=== PATIENT | female | born 1995 | race Hispanic/Latino ===

== ENCOUNTER 2018-05-27 08:28 | Emergency (ER) | payer MEDICARE ==
[2018-05-27 09:46] LABS: APPEARANCE,URINE Clear (CLEAR); BILIRUBIN,URINE Negative (NEGATIVE); COLOR,URINE Yellow (YELLOW); GLUCOSE, URINE (UA) Negative (NEGATIVE); KETONES,URINE Negative (NEGATIVE); LEUKOCYTE ESTERASE ,URINE Small (NEGATIVE); NITRATE,URINE Negative (NEGATIVE); OCCULT BLOOD,URINE Negative (NEGATIVE); PH,URINE 5.5 (5.0-8.0); PROTEIN,URINE Negative (NEGATIVE); UROBILINOGEN,URINE 0.2 mg/dL (0.2-1.0)
[2018-05-27 09:57] LABS: RAPID GROUP A STREP NEGATIVE (NEGATIVE)
[2018-05-27 10:01] LABS: RBC,URINE None Seen /HPF (0-1)
[2018-05-27 10:02] LABS: BACTERIA,URINE Rare /HPF (None Seen); MUCUS,URINE Moderate LPF (None Seen); SQUAMOUS EPITHELIAL CELL,UR Moderate /HPF (0-2)
[2018-05-27 10:49] LABS: BASOPHILS % (AUTO) 0.3 % (0.0-5.0); EOSINOPHILS % (AUTO) 1.6 % (0.0-8.0); LYMPHOCYTES % (AUTO) 19.9 % (21.0-51.0); MEAN CORPUSCULAR HEMOGLOBIN 28.4 pg (27.0-33.0); MEAN CORPUSCULAR HGB CONC 33.1 g/dL (32.0-36.0); MEAN CORPUSCULAR VOLUME 85.8 fL (79-99); MONOCYTES % (AUTO) 3.6 % (3.0-13.0); NEUTROPHILS % (AUTO) 74.6 % (40.0-77.0); PLATELET COUNT (AUTO) 228 K/uL (130-400); RED CELL DISTRIBUTION WIDTH 13.4 % (11.0-15.5); WHITE BLOOD COUNT (AUTO) 3.3 K/uL (4.8-10.8)
[2018-05-27 10:58] LABS: CREATININE 0.7 mg/dL (0.5-1.5); POTASSIUM 3.7 mmol/L (3.5-5.1)
[2018-05-27] MEDS ORDERED: LIDOCAINE HCL MPF 1% 5ML VIAL ONE (11:00)
[2018-05-27] MEDS ORDERED: CEFTRIAXONE SODIUM 1 GM ONE (11:00)
[2018-05-27 11:03] LABS: ALBUMIN 2.7 g/dL (3.5-5.0); BILIRUBIN,TOTAL 0.1 mg/dL (0.2-1.0); TOTAL PROTEIN, SERUM 7.1 g/dL (6.0-8.3)
== END 2018-05-27 11:33 | disposition home or self-care (01) ==
LOC: EDH 08:28
DX: N39.0 Urinary tract infection, site not specified (principal); R50.81 Fever presenting with conditions classified elsewhere; M79.10 Myalgia, unspecified site; Z88.0 Allergy status to penicillin; Z98.890 Other specified postprocedural states
CPT/HCPCS: 36415; 80053; 81001; 81025; 85025; 86757; 87804 ×2; 87880; 96372; 99284; J0696; J3490

== ENCOUNTER 2018-05-29 07:34 | Observation (INO) | payer MEDICARE ==
[~2018-05-29] VITALS: Ht 154.9 cm; Wt 55.8 kg
[2018-05-29] MEDS ORDERED: KETOROLAC TROMETHAMINE 30MG/ML ONE (08:07)
[2018-05-29 08:22] LABS: BASOPHILS % (AUTO) 0.4 % (0.0-5.0); EOSINOPHILS % (AUTO) 1.7 % (0.0-8.0); HEMATOCRIT 30.7 % (36-48); LYMPHOCYTES % (AUTO) 21.9 % (21.0-51.0); MEAN CORPUSCULAR HEMOGLOBIN 28.7 pg (27.0-33.0); MEAN CORPUSCULAR HGB CONC 33.3 g/dL (32.0-36.0); MEAN CORPUSCULAR VOLUME 86.1 fL (79-99); NUCLEATED RED BLOOD CELLS 0.1 % (0.0-0.19); PLATELET COUNT (AUTO) 227 K/uL (130-400); RED BLOOD CELL COUNT(AUTO) 3.57 MIL/uL (4.00-5.50); RED CELL DISTRIBUTION WIDTH 13.6 % (11.0-15.5); WHITE BLOOD COUNT (AUTO) 3.4 K/uL (4.8-10.8)
[2018-05-29 08:28] LABS: CREATININE 0.6 mg/dL (0.5-1.5); POTASSIUM 3.4 mmol/L (3.5-5.1)
[2018-05-29 08:31] LABS: APPEARANCE,URINE CLEAR (CLEAR); BILIRUBIN,URINE NEGATIVE (NEGATIVE); COLOR,URINE YELLOW (YELLOW); GLUCOSE, URINE (UA) NEGATIVE (NEGATIVE); KETONES,URINE NEGATIVE (NEGATIVE); LEUKOCYTE ESTERASE ,URINE NEGATIVE (NEGATIVE); NITRATE,URINE NEGATIVE (NEGATIVE); OCCULT BLOOD,URINE TRACE-INTACT (NEGATIVE); PROTEIN,URINE NEGATIVE (NEGATIVE); UROBILINOGEN,URINE 0.2 mg/dL (0.2-1.0)
[2018-05-29 08:32] LABS: ALBUMIN 2.7 g/dL (3.5-5.0); BILIRUBIN,TOTAL 0.2 mg/dL (0.2-1.0); CRP QUANTITATIVE 12.3 mg/L (0.00-9.0); TOTAL PROTEIN, SERUM 7.1 g/dL (6.0-8.3)
[2018-05-29 08:45] LABS: RBC,URINE None Seen /HPF (0-1); WBC,URINE 0-1 /HPF (0-1)
[2018-05-29 08:48] LABS: BACTERIA,URINE Rare /HPF (None Seen); SQUAMOUS EPITHELIAL CELL,UR Few /HPF (0-2)
[2018-05-29] MEDS ORDERED: ONDANSETRON HCL 4 MG/2 ML VIAL ONE (09:02)
[2018-05-29] MEDS ORDERED: MORPHINE SULFATE 4 MG/1ML SYG ONE (09:03)
[2018-05-29] MEDS ORDERED: SODIUM CHLORIDE 0.9% 1000ML 1,000 ML IV ONE (10:52)
[2018-05-29] MEDS ORDERED: ENOXAPARIN SODIUM 40 MG/0.4 ML SYRINGE SQ ONE (10:52)
[2018-05-29] MEDS ORDERED: MORPHINE SULFATE 2 MG/ML 1ML SYG ONE (12:28)
[2018-05-29 13:05] VITALS: BP 105/62
[2018-05-29] MEDS ORDERED: LACTULOSE 20 GM/30 ML UDCUP PO PRN (14:30)
[2018-05-29] MEDS ORDERED: ACETAMINOPHEN 325 MG TAB PO PRN ×2 (14:30)
[2018-05-29] MEDS ORDERED: ONDANSETRON HCL 4 MG/2 ML VIAL IVP PRN (14:30)
[2018-05-29] MEDS ORDERED: MAG HYDROX/AL HYDROX/SIMETH ES 30 ML SUSP UDCUP PO PRN (14:30)
[2018-05-29] MEDS ORDERED: NITROGLYCERIN 0.4 MG SL TAB SL PRN (14:30)
[2018-05-29] MEDS ORDERED: GUAIFENESIN-DM 200/20 MG 10 ML PO PRN (14:30)
[2018-05-29] MEDS ORDERED: LIDOCAINE HCL-MPF 1% 2ML VIAL IJ PRN (14:30)
[2018-05-29] MEDS ORDERED: POTASSIUM CHLORIDE 10% ELIXIR 20 MEQ/15 ML UDCUP PO PRN (14:30)
[2018-05-29] MEDS ORDERED: CLONIDINE HCL 0.1 MG TABLET PO PRN (14:30)
[2018-05-29] MEDS ORDERED: DIPHENHYDRAMINE HCL 25 MG CAPSULE PO PRN (14:30)
[2018-05-29] MEDS ORDERED: DiphenhydrAMINE HCL 50 MG/ML VIAL IVP PRN (14:30)
[2018-05-29] MEDS ORDERED: ZOLPIDEM TARTRATE 5 MG TAB PO PRN (14:30)
[2018-05-29] MEDS ORDERED: POTASSIUM CHLORIDE 20MEQ/100ML 100 ML IV PRN (14:30)
[2018-05-29] MEDS ORDERED: LEVE250T2 PO (15:38)
[2018-05-29] MEDS: SODIUM CHLORIDE 0.9% 1000ML 1,000 ML IV SCH (15:58)
[2018-05-29 16:00] VITALS: BP 95/48
[2018-05-29] MEDS: HYDROCODONE/ACETAMINOPHEN 5/325 MG TAB PO PRN ×2 (16:06→20:23)
[2018-05-29] MEDS: INSULIN R PO SS1 SQ SCH ×2 (16:28→21:00)
[2018-05-29] MEDS: POTASSIUM CHLORIDE 20 MEQ ERTAB PO PRN (17:51)
[2018-05-29 19:00] VITALS: BP 95/55
[2018-05-29] MEDS ORDERED: DOXY100C40 PO (19:04)
[2018-05-29] MEDS: LEVETIRACETAM 500 MG TABLET PO SCH (20:23)
[2018-05-29] MEDS: MORPHINE SULFATE 2 MG/ML 1ML SYG IVP PRN (21:56)
[2018-05-30] VITALS: BP 105/51
[2018-05-30] MEDS: MORPHINE SULFATE 2 MG/ML 1ML SYG IVP PRN ×2 (03:24→23:17)
[2018-05-30] MEDS: SODIUM CHLORIDE 0.9% 1000ML 1,000 ML IV SCH (03:29)
[2018-05-30 04:00] VITALS: BP 109/57
[2018-05-30 04:47] LABS: HEMATOCRIT 29.1 % (36-48); MEAN CORPUSCULAR HEMOGLOBIN 28.2 pg (27.0-33.0); MEAN CORPUSCULAR HGB CONC 33.1 g/dL (32.0-36.0); MEAN CORPUSCULAR VOLUME 85.1 fL (79-99); NUCLEATED RED BLOOD CELLS 0.1 % (0.0-0.19); PLATELET COUNT (AUTO) 199 K/uL (130-400); RED BLOOD CELL COUNT(AUTO) 3.42 MIL/uL (4.00-5.50); RED CELL DISTRIBUTION WIDTH 13.4 % (11.0-15.5); WHITE BLOOD COUNT (AUTO) 3.1 K/uL (4.8-10.8)
[2018-05-30 05:02] LABS: CREATININE 0.6 mg/dL (0.5-1.5); POTASSIUM 3.3 mmol/L (3.5-5.1)
[2018-05-30] MEDS: INSULIN R PO SS1 SQ SCH ×4 (06:11→21:00)
[2018-05-30] MEDS: HYDROCODONE/ACETAMINOPHEN 5/325 MG TAB PO PRN ×3 (06:31→18:46)
[2018-05-30 07:00] VITALS: BP 102/59
[2018-05-30] MEDS: ENOXAPARIN SODIUM 40 MG/0.4 ML SYRINGE SQ SCH (08:47)
[2018-05-30] MEDS: LEVETIRACETAM 500 MG TABLET PO SCH ×2 (08:47→21:20)
[2018-05-30 11:00] VITALS: BP 98/61
[2018-05-30 15:59] VITALS: BP 105/55
[2018-05-30] MEDS: POTASSIUM CHLORIDE 20 MEQ ERTAB PO PRN ×2 (18:52→21:21)
[2018-05-30 19:00] VITALS: BP 107/55
[2018-05-30] MEDS: METHYLPREDNISOLONE SOD SUCC 125MG/2ML VIAL IVP SCH (21:20)
[2018-05-31] VITALS: BP 90/59
[2018-05-31] MEDS: METHYLPREDNISOLONE SOD SUCC 125MG/2ML VIAL IVP SCH ×3 (03:00→19:51)
[2018-05-31 04:00] VITALS: BP 103/51
[2018-05-31 05:01] LABS: MEAN CORPUSCULAR VOLUME 85.2 fL (79-99); PLATELET COUNT (AUTO) 241 K/uL (130-400); RED BLOOD CELL COUNT(AUTO) 3.64 MIL/uL (4.00-5.50); RED CELL DISTRIBUTION WIDTH 13.3 % (11.0-15.5); WHITE BLOOD COUNT (AUTO) 2.5 K/uL (4.8-10.8)
[2018-05-31 05:11] LABS: CREATININE 0.6 mg/dL (0.5-1.5); CRP QUANTITATIVE 22.3 mg/L (0.00-9.0); MAGNESIUM 1.8 mg/dL (1.80-2.40); PHOSPHORUS 3.4 mg/dL (2.5-4.9); POTASSIUM 4.2 mmol/L (3.5-5.1)
[2018-05-31] MEDS: INSULIN R PO SS1 SQ SCH ×3 (06:34→16:30)
[2018-05-31 07:58] VITALS: BP 101/54
[2018-05-31] MEDS: LEVETIRACETAM 500 MG TABLET PO SCH (09:45)
[2018-05-31] MEDS: HYDROCODONE/ACETAMINOPHEN 5/325 MG TAB PO PRN (09:46)
[2018-05-31] MEDS: ENOXAPARIN SODIUM 40 MG/0.4 ML SYRINGE SQ SCH (09:47)
[2018-05-31 11:36] VITALS: BP 97/56
[2018-05-31] MEDS: MORPHINE SULFATE 2 MG/ML 1ML SYG IVP PRN (16:31)
[2018-05-31 16:38] VITALS: BP 108/51
[2018-05-31] MEDS ORDERED: POTASSIUM CHLORIDE 20 MEQ ERTAB PO SCH (17:00)
== END 2018-05-31 20:29 | disposition home or self-care (01) ==
LOC: EDH 07:34 → EDHIP 09:50 → 3BH 13:07
PROVIDERS: ADMIT Internal Medicine Critical Care Medicine; ATTEND Internal Medicine Critical Care Medicine
DX: M06.4 Inflammatory polyarthropathy (principal); M19.90 Unspecified osteoarthritis, unspecified site; G40.909 Epilepsy, unspecified, not intractable, without status epilepticus
CPT/HCPCS: 36415 ×3; 72125; 80048 ×2; 80053; 81001; 81025; 82948 ×10; 83735; 84100; 85025; 85027 ×2; 86038; 86140 ×2; 86160 ×2; 86162; 86215; 86235 ×7; 86431; 96372 ×2; 96374; 96375; 96376 ×2; 99285; G0378 ×59; J1650 ×3; J1885; J2270; J2405; J2930 ×4; J7030 ×2

== ENCOUNTER 2018-07-14 10:01 | Emergency (ER) | payer MEDICARE ==
[~2018-07-14 10:01] MED LIST: DOXY100C40 PO; LEVE250T2 PO
[2018-07-14] MEDS ORDERED: DEXAMETHASONE SOD PHOSPHATE 10MG/ML 1ML VIAL ONE (10:45)
[2018-07-14 10:47] LABS: APPEARANCE,URINE Clear (CLEAR); BILIRUBIN,URINE Negative (NEGATIVE); COLOR,URINE Yellow (YELLOW); GLUCOSE, URINE (UA) Negative (NEGATIVE); KETONES,URINE Negative (NEGATIVE); LEUKOCYTE ESTERASE ,URINE Small (NEGATIVE); NITRATE,URINE Negative (NEGATIVE); OCCULT BLOOD,URINE Negative (NEGATIVE); PH,URINE 5.5 (5.0-8.0); PROTEIN,URINE Negative (NEGATIVE)
[2018-07-14 10:53] LABS: HCG,QUAL RESULT NEGATIVE (NEGATIVE)
[2018-07-14 10:55] LABS: BACTERIA,URINE Few /HPF (None Seen); MUCUS,URINE Few LPF (None Seen); RBC,URINE None Seen /HPF (0-1); SQUAMOUS EPITHELIAL CELL,UR Few /HPF (0-2)
== END 2018-07-14 10:59 | disposition home or self-care (01) ==
LOC: EDH 10:01
DX: M13.0 Polyarthritis, unspecified (principal); M25.50 Pain in unspecified joint; M06.9 Rheumatoid arthritis, unspecified; Z98.890 Other specified postprocedural states; Z88.0 Allergy status to penicillin
CPT/HCPCS: 81001; 81025; 96372; 99283; J1100

== ENCOUNTER 2018-11-20 09:45 | Observation (INO) | payer MEDICARE ==
[~2018-11-20] VITALS: Ht 154.9 cm; Wt 50.8 kg
[2018-11-20] MEDS ORDERED: MORPHINE SULFATE 2 MG/ML 1ML SYG ONE ×2 (10:28→15:15)
[2018-11-20] MEDS ORDERED: ONDANSETRON HCL 4 MG/2 ML VIAL ONE ×2 (10:28→15:19)
[2018-11-20 10:48] LABS: BASOPHILS % (AUTO) 0.4 % (0.0-5.0); LYMPHOCYTES % (AUTO) 3.5 % (21.0-51.0); MEAN CORPUSCULAR HEMOGLOBIN 26.7 pg (27.0-33.0); MEAN CORPUSCULAR HGB CONC 32.8 g/dL (32.0-36.0); MEAN CORPUSCULAR VOLUME 81.2 fL (79-99); MONOCYTES % (AUTO) 5.2 % (3.0-13.0); NEUTROPHILS % (AUTO) 90.9 % (40.0-77.0); PLATELET COUNT (AUTO) 223 K/uL (130-400); RED BLOOD CELL COUNT(AUTO) 3.81 MIL/uL (4.00-5.50); RED CELL DISTRIBUTION WIDTH 14.6 % (11.0-15.5); WHITE BLOOD COUNT (AUTO) 14.2 K/uL (4.8-10.8)
[2018-11-20 11:03] LABS: ALBUMIN 2.8 g/dL (3.5-5.0); BILIRUBIN,TOTAL 0.9 mg/dL (0.2-1.0); TOTAL PROTEIN, SERUM 7.3 g/dL (6.0-8.3)
[2018-11-20 12:16] LABS: APPEARANCE,URINE Clear (CLEAR); BILIRUBIN,URINE Negative (NEGATIVE); COLOR,URINE Yellow (YELLOW); GLUCOSE, URINE (UA) Negative (NEGATIVE); KETONES,URINE Trace mg/dL (NEGATIVE); LEUKOCYTE ESTERASE ,URINE Large (NEGATIVE); NITRATE,URINE Negative (NEGATIVE); OCCULT BLOOD,URINE Small (NEGATIVE); PH,URINE 6.5 (5.0-8.0); PROTEIN,URINE POS 1+ mg/dL (NEGATIVE)
[2018-11-20 12:49] LABS: BACTERIA,URINE Many /HPF (None Seen); SQUAMOUS EPITHELIAL CELL,UR Few /HPF (0-2); WBC,URINE TNTC /HPF (0-1)
[2018-11-20] MEDS ORDERED: LEVOFLOXACIN 500 MG/D5W 100 ML 100 ML ONE (13:21)
[2018-11-20] MEDS ORDERED: POTASSIUM CHLORIDE 20 MEQ ERTAB PO ONE (13:55)
[2018-11-20] MEDS ORDERED: POTASSIUM CHLORIDE 20MEQ/100ML 100 ML IV PRN (15:15)
[2018-11-20] MEDS ORDERED: LIDOCAINE HCL-MPF 1% 2ML VIAL IJ PRN (15:15)
[2018-11-20] MEDS ORDERED: POTASSIUM CHLORIDE 10% ELIXIR 20 MEQ/15 ML UDCUP PO PRN (15:15)
[2018-11-20] MEDS ORDERED: LACTATED RINGERS 1000ML 1,000 ML IV ONE (15:19)
[2018-11-20] MEDS ORDERED: ACETAMINOPHEN 325 MG TAB ONE (20:31)
--- NOTE | 2018-11-20 22:15 | NUR ---
admit note admit to room 401 via w/c from er , patient awake, alert, ox3, no sob,no c/o pain at this time, right ac 20 gauge catheter with ivf infusing well, no family at bedside, teach patient plan of care and expected outcome, patient verbalizes understanding via teach back
[2018-11-20 22:20] VITALS: BP 103/51
[2018-11-20] MEDS ORDERED: FLUO10CA21 PO (22:30)
[2018-11-20] MEDS ORDERED: HYDR200T82 PO (22:30)
[2018-11-20] MEDS ORDERED: LEVE10006 PO ×2 (22:30)
[2018-11-20] MEDS ORDERED: FOLI20CA PO (22:30)
[2018-11-20] MEDS: LACTATED RINGERS 1000ML 1,000 ML IV SCH ×2 (23:15→23:40)
[2018-11-20] MEDS ORDERED: MAGNESIUM 2GM PREMIX 50ML 50 ML IV PRN (23:45)
[2018-11-21] MEDS ORDERED: MORPHINE SULFATE 2 MG/ML 1ML SYG ONE (00:30)
[2018-11-21] MEDS: ONDANSETRON HCL 4 MG/2 ML VIAL IVP PRN ×2 (00:32→17:35)
--- NOTE | 2018-11-21 00:32 | NUR ---
nausea c/o nausea, no vomiting, zofran 4 mg ivp given
--- NOTE | 2018-11-21 01:05 | NUR ---
med effect nausea subsided
[2018-11-21 04:04] VITALS: BP 96/45
[2018-11-21 04:10] LABS: HEMATOCRIT 26.3 % (36-48); MEAN CORPUSCULAR HEMOGLOBIN 27.9 pg (27.0-33.0); MEAN CORPUSCULAR HGB CONC 33.7 g/dL (32.0-36.0); MEAN CORPUSCULAR VOLUME 82.9 fL (79-99); PLATELET COUNT (AUTO) 182 K/uL (130-400); RED BLOOD CELL COUNT(AUTO) 3.17 MIL/uL (4.00-5.50); RED CELL DISTRIBUTION WIDTH 14.3 % (11.0-15.5); WHITE BLOOD COUNT (AUTO) 10.5 K/uL (4.8-10.8)
[2018-11-21 04:28] LABS: ALBUMIN 2.1 g/dL (3.5-5.0); BILIRUBIN,TOTAL 0.5 mg/dL (0.2-1.0); CREATININE 0.9 mg/dL (0.5-1.5); POTASSIUM 3.4 mmol/L (3.5-5.1); TOTAL PROTEIN, SERUM 5.8 g/dL (6.0-8.3)
[2018-11-21] MEDS: POTASSIUM CHLORIDE 20 MEQ ERTAB PO PRN ×2 (06:23→09:44)
[2018-11-21] MEDS: LACTATED RINGERS 1000ML 1,000 ML IV SCH (06:24)
[2018-11-21] MEDS: MORPHINE SULFATE 2 MG/ML 1ML SYG IVP PRN ×3 (06:28→21:45)
--- NOTE | 2018-11-21 09:00 | NUR ---
[place] MET W PT ; AAOX3, YOUNG , MOM OF YOUNG CHILDREN , GRANT, NO DME, STATES BECAME NAUESATED AFTER EATING; HX OF LUPUS, PAIN+ WITH THIS ILLNESS. DCP HOME, MOTHER OT PROVIDE TRANSPORT Addendum: 11/22/18 at 1956 by JOHNNY BABCOCK RN CM Amended: Links added.
[2018-11-21 09:08] VITALS: BP 92/50
[2018-11-21] MEDS: FOLIC ACID 1 MG TABLET PO SCH (09:32)
[2018-11-21] MEDS: LEVETIRACETAM 500 MG TABLET PO SCH (09:32)
[2018-11-21] MEDS: FLUOXETINE HCL 10 MG CAPSULE PO SCH (09:32)
[2018-11-21 11:34] VITALS: BP 92/53
[2018-11-21] MEDS: ACETAMINOPHEN 325 MG TAB PO PRN (11:53)
--- NOTE | 2018-11-21 13:20 | NUR ---
Notified Dr. Brewster during his round with pt of pt's continued loose stools, low bps with c/o dizziness upon standing/ambulation and abd pain. Rec'd orders to saline lock IV fluids (due to lower extremity swelling; hx lupus) , administer morphine for severe pain only and ibuprofen for mild pain, continue same antibiotics, repeat labs in am. Addendum: 11/21/18 at 2031 by ALBA LYNN RN RN placed pt on isolation precautions @ 1200due to loose stools
[2018-11-21] MEDS: LEVOFLOXACIN 500 MG/D5W 100 ML 100 ML IV SCH (13:58)
[2018-11-21 16:50] VITALS: BP 94/62
[2018-11-21 17:35] VITALS: BP 102/48
--- NOTE | 2018-11-21 17:45 | NUR ---
Pt has had five more episodes of watery stool since md rounds at 1pm. reported to MD. Rec'd orders to collect stool for PCR. Orders entered.
--- NOTE | 2018-11-21 18:10 | NUR ---
RD Notification Upon visit, patient reports improving appetite and was able to eat 50% lunch as per patient. Patient reports nausea at breakfast, however subsided by lunch time. Patient does not desire nutritional supplement at this time. Patient reports some diarrhea with BM (11/20/18). Patient monitored labs: K 3.4, Ca 8.0, AST 10, Alb 2.1. RD to continue to monitor. Please notify RD as nutritional concerns arise. Thank you. Addendum: 11/21/18 at [address] Amended: Links added.
[2018-11-21 20:01] VITALS: BP 109/57
[2018-11-21] MEDS: IBUPROFEN 400 MG TABLET PO PRN (20:51)
[2018-11-21] MEDS ORDERED: LEVETIRACETAM 500 MG TABLET PO SCH (21:00)
[2018-11-21] MEDS ORDERED: HYDROXYCHLOROQUINE SULFATE 200 MG TAB PO SCH (21:00)
[2018-11-22] VITALS: BP 98/50
[2018-11-22 04:31] VITALS: BP 103/50
[2018-11-22 04:31] LABS: BASOPHILS % (AUTO) 0.1 % (0.0-5.0); EOSINOPHILS % (AUTO) 0.5 % (0.0-8.0); HEMATOCRIT 26.6 % (36-48); MEAN CORPUSCULAR HEMOGLOBIN 27.1 pg (27.0-33.0); MEAN CORPUSCULAR HGB CONC 32.5 g/dL (32.0-36.0); MEAN CORPUSCULAR VOLUME 83.3 fL (79-99); MONOCYTES % (AUTO) 7.6 % (3.0-13.0); NEUTROPHILS % (AUTO) 81.8 % (40.0-77.0); PLATELET COUNT (AUTO) 182 K/uL (130-400); RED CELL DISTRIBUTION WIDTH 14.8 % (11.0-15.5); WHITE BLOOD COUNT (AUTO) 6.8 K/uL (4.8-10.8)
[2018-11-22 04:49] LABS: ALBUMIN 1.9 g/dL (3.5-5.0); BILIRUBIN,TOTAL 0.4 mg/dL (0.2-1.0); CREATININE 0.9 mg/dL (0.5-1.5); POTASSIUM 3.7 mmol/L (3.5-5.1); TOTAL PROTEIN, SERUM 5.9 g/dL (6.0-8.3)
[2018-11-22 08:00] VITALS: BP 93/49
[2018-11-22] MEDS: FLUOXETINE HCL 10 MG CAPSULE PO SCH (09:24)
[2018-11-22] MEDS: LEVETIRACETAM 500 MG TABLET PO SCH (09:24)
[2018-11-22] MEDS: FOLIC ACID 1 MG TABLET PO SCH (09:24)
[2018-11-22] MEDS: MORPHINE SULFATE 2 MG/ML 1ML SYG IVP PRN (09:25)
[2018-11-22 11:00] VITALS: BP 96/53
[2018-11-22] MEDS: LEVOFLOXACIN 500 MG/D5W 100 ML 100 ML IV SCH (12:20)
[2018-11-22] MEDS: ACETAMINOPHEN 325 MG TAB PO PRN (12:21)
[2018-11-22 16:00] VITALS: BP 87/49
[2018-11-22] MEDS: IBUPROFEN 400 MG TABLET PO PRN (17:27)
--- NOTE | 2018-11-22 18:35 | NUR ---
DISCHARGE DISCHARGE TEACHING DONE WITH PATIENT, VERBALIZED UNDERSTANDING. NO NOTED SOB OR DISTRESS. NEW MEDICATION ADMINISTRATION TEACHING DONE WITH PATIENT, VERBALIZED UNDERSTANDING. TEACHING DONE WITH PATIENT USING TEACHBACK METHOD, VERBALIZED UNDERSTANDING. IV REMOVED, CATH TIP INTACT. RX GIVEN TO PATIENT AND PARENT
--- NOTE | 2018-11-25 08:20 | NUR ---
CALL TO DR.A. BYRD T/C PLACED TO DR. BYRD'S OFFICE AND SPOKE WITH NENITA, VERIFIED THIS IS HIS PT AND FAXED LAB RESULTS TO [phone].
== END 2018-11-22 18:30 | disposition home or self-care (01) ==
LOC: EDH 09:45 → EDHIP 14:00 → 3CH 20:34 → 4AH 21:27
PROVIDERS: ADMIT Internal Medicine Critical Care Medicine; ATTEND Internal Medicine Critical Care Medicine
DX: A41.9 Sepsis, unspecified organism (principal); E86.0 Dehydration; G40.909 Epilepsy, unspecified, not intractable, without status epilepticus; M13.0 Polyarthritis, unspecified; M32.9 Systemic lupus erythematosus, unspecified; N30.00 Acute cystitis without hematuria; E86.9 Volume depletion, unspecified; Z79.899 Other long term (current) drug therapy
CPT/HCPCS: 36415 ×3; 71046; 74176; 80053 ×3; 81001; 81025; 83605; 85025 ×2; 85027; 87040 ×2; 87077 ×2; 87088; 87186 ×2; 87804 ×2; 96361 ×2; 96365; 96366; 96375 ×2; 96376 ×3; 99284; G0378 ×52; J1956 ×3; J2405 ×4; J7120 ×3

== ENCOUNTER 2018-11-26 10:19 | Emergency (ER) | payer MEDICARE ==
[~2018-11-26 10:19] MED LIST changes: -DOXY100C40 PO; +FLUO10CA21 PO; +FOLI20CA PO; +HYDR200T82 PO; +LEVE10006 PO; -LEVE250T2 PO
[2018-11-26 10:38] LABS: BASOPHILS % (AUTO) 0.3 % (0.0-5.0); EOSINOPHILS % (AUTO) 0.7 % (0.0-8.0); LYMPHOCYTES % (AUTO) 3.2 % (21.0-51.0); MEAN CORPUSCULAR HEMOGLOBIN 27.3 pg (27.0-33.0); MEAN CORPUSCULAR HGB CONC 33.3 g/dL (32.0-36.0); NEUTROPHILS % (AUTO) 94.8 % (40.0-77.0); PLATELET COUNT (AUTO) 337 K/uL (130-400); RED BLOOD CELL COUNT(AUTO) 3.78 MIL/uL (4.00-5.50); RED CELL DISTRIBUTION WIDTH 15.1 % (11.0-15.5); WHITE BLOOD COUNT (AUTO) 8.4 K/uL (4.8-10.8)
[2018-11-26] MEDS ORDERED: MORPHINE SULFATE 4 MG/1ML SYG ONE (10:47)
[2018-11-26] MEDS ORDERED: ONDANSETRON HCL 4 MG/2 ML VIAL ONE (10:47)
[2018-11-26 10:55] LABS: CREATININE 0.8 mg/dL (0.5-1.5); POTASSIUM 3.2 mmol/L (3.5-5.1)
[2018-11-26 11:00] LABS: ALBUMIN 2.4 g/dL (3.5-5.0); BILIRUBIN,TOTAL 0.3 mg/dL (0.2-1.0); TOTAL PROTEIN, SERUM 6.5 g/dL (6.0-8.3)
[2018-11-26 12:20] LABS: APPEARANCE,URINE Clear (CLEAR); BILIRUBIN,URINE Negative (NEGATIVE); COLOR,URINE Yellow (YELLOW); GLUCOSE, URINE (UA) Negative (NEGATIVE); KETONES,URINE Trace mg/dL (NEGATIVE); LEUKOCYTE ESTERASE ,URINE Large (NEGATIVE); NITRATE,URINE Negative (NEGATIVE); OCCULT BLOOD,URINE Negative (NEGATIVE); PH,URINE 5.5 (5.0-8.0); PROTEIN,URINE Negative (NEGATIVE); UROBILINOGEN,URINE 0.2 mg/dL (0.2-1.0)
[2018-11-26 12:21] LABS: HCG,QUAL RESULT NEGATIVE (NEGATIVE)
[2018-11-26 12:29] LABS: RBC,URINE None Seen /HPF (0-1); WBC,URINE 26-50 /HPF (0-1)
[2018-11-26 12:30] LABS: BACTERIA,URINE Few /HPF (None Seen)
[2018-11-26] MEDS ORDERED: METHYLPREDNISOLONE SOD SUCC 125MG/2ML VIAL ONE (12:57)
[2018-11-26] MEDS ORDERED: CEFTRIAXONE SODIUM 1 GM ONE (14:28)
== END 2018-11-26 15:24 | disposition home or self-care (01) ==
LOC: EDH 10:19
DX: N39.0 Urinary tract infection, site not specified (principal); M32.9 Systemic lupus erythematosus, unspecified; M19.90 Unspecified osteoarthritis, unspecified site; Z88.0 Allergy status to penicillin; Z98.890 Other specified postprocedural states
CPT/HCPCS: 36415; 80053; 81001; 81025; 84702; 85025; 85651; 87088; 96374; 96375; 99284; J0696; J2270; J2405; J2930

== ENCOUNTER 2018-12-08 13:16 | Emergency (ER) | payer MEDICARE ==
[2018-12-08] MEDS ORDERED: ONDANSETRON HCL 4 MG/2 ML VIAL ONE (13:40)
[2018-12-08] MEDS ORDERED: SODIUM CHLORIDE 0.9% 1000ML 1,000 ML IV ONE (13:45)
[2018-12-08 13:51] LABS: BASOPHILS % (AUTO) 0.4 % (0.0-5.0); EOSINOPHILS % (AUTO) 0.7 % (0.0-8.0); HEMATOCRIT 30.1 % (36-48); LYMPHOCYTES % (AUTO) 22.9 % (21.0-51.0); MEAN CORPUSCULAR HGB CONC 32.8 g/dL (32.0-36.0); MEAN CORPUSCULAR VOLUME 82.2 fL (79-99); MONOCYTES % (AUTO) 10.9 % (3.0-13.0); NEUTROPHILS % (AUTO) 65.1 % (40.0-77.0); PLATELET COUNT (AUTO) 437 K/uL (130-400); RED BLOOD CELL COUNT(AUTO) 3.66 MIL/uL (4.00-5.50); RED CELL DISTRIBUTION WIDTH 15.5 % (11.0-15.5); WHITE BLOOD COUNT (AUTO) 7.5 K/uL (4.8-10.8)
[2018-12-08 13:57] LABS: APPEARANCE,URINE Clear (CLEAR); BILIRUBIN,URINE Negative (NEGATIVE); COLOR,URINE Yellow (YELLOW); GLUCOSE, URINE (UA) Negative (NEGATIVE); KETONES,URINE Negative (NEGATIVE); LEUKOCYTE ESTERASE ,URINE Large (NEGATIVE); NITRATE,URINE Negative (NEGATIVE); OCCULT BLOOD,URINE Negative (NEGATIVE); PROTEIN,URINE Trace mg/dL (NEGATIVE)
[2018-12-08 14:03] LABS: CREATININE 0.7 mg/dL (0.5-1.5); POTASSIUM 3.6 mmol/L (3.5-5.1)
[2018-12-08 14:05] LABS: HCG,QUAL RESULT NEGATIVE (NEGATIVE)
[2018-12-08 14:07] LABS: BILIRUBIN,TOTAL 0.3 mg/dL (0.2-1.0); TOTAL PROTEIN, SERUM 6.9 g/dL (6.0-8.3)
[2018-12-08 14:09] LABS: BACTERIA,URINE Moderate /HPF (None Seen); MUCUS,URINE Few LPF (None Seen); SQUAMOUS EPITHELIAL CELL,UR 0-2 /HPF (0-2)
[2018-12-08] MEDS ORDERED: IOHEXOL-350 75 ML VIAL IV ONE (15:22)
[2018-12-08] MEDS ORDERED: CEFTRIAXONE SODIUM 1 GM ONE (15:24)
[2018-12-08] MEDS ORDERED: DOXYCYCLINE HYCLATE 100 MG TABLET PO ONE (16:45)
== END 2018-12-08 17:00 | disposition home or self-care (01) ==
LOC: EDH 13:16
DX: N30.00 Acute cystitis without hematuria (principal); E86.0 Dehydration; Z88.0 Allergy status to penicillin; M06.9 Rheumatoid arthritis, unspecified
CPT/HCPCS: 36415; 74177; 80053; 81001; 81025; 83690; 85025; 87486; 87797; 96361; 96374; 96375; 99285; J0696; J2405; J7030; Q9967

== ENCOUNTER 2019-02-05 13:29 | Emergency (ER) | payer MEDICARE ==
[2019-02-05] MEDS ORDERED: SODIUM CHLORIDE 0.9% 1000ML 1,000 ML IV ONE (13:39)
[2019-02-05] MEDS ORDERED: HYDROCODONE/ACETAMINOPHEN 5/325 MG TAB ONE (13:48)
[2019-02-05 14:12] LABS: BASOPHILS % (AUTO) 0.3 % (0.0-5.0); EOSINOPHILS % (AUTO) 0.5 % (0.0-8.0); HEMATOCRIT 34.1 % (36-48); LYMPHOCYTES % (AUTO) 13.6 % (21.0-51.0); MEAN CORPUSCULAR HEMOGLOBIN 27.1 pg (27.0-33.0); MEAN CORPUSCULAR HGB CONC 32.6 g/dL (32.0-36.0); MEAN CORPUSCULAR VOLUME 83.2 fL (79-99); MONOCYTES % (AUTO) 3.8 % (3.0-13.0); NEUTROPHILS % (AUTO) 81.8 % (40.0-77.0); NUCLEATED RED BLOOD CELLS 0.1 % (0.0-0.19); PLATELET COUNT (AUTO) 266 K/uL (130-400); RED BLOOD CELL COUNT(AUTO) 4.09 MIL/uL (4.00-5.50); RED CELL DISTRIBUTION WIDTH 16.8 % (11.0-15.5); WHITE BLOOD COUNT (AUTO) 8.1 K/uL (4.8-10.8)
[2019-02-05 14:22] LABS: CREATININE 0.7 mg/dL (0.5-1.5); POTASSIUM 3.6 mmol/L (3.5-5.1)
[2019-02-05 14:27] LABS: BILIRUBIN,TOTAL 0.3 mg/dL (0.2-1.0); TOTAL PROTEIN, SERUM 6.7 g/dL (6.0-8.3)
[2019-02-05 15:13] LABS: APPEARANCE,URINE Clear (CLEAR); BILIRUBIN,URINE Negative (NEGATIVE); COLOR,URINE Yellow (YELLOW); GLUCOSE, URINE (UA) Negative (NEGATIVE); KETONES,URINE Negative (NEGATIVE); LEUKOCYTE ESTERASE ,URINE Small (NEGATIVE); NITRATE,URINE Negative (NEGATIVE); OCCULT BLOOD,URINE Negative (NEGATIVE); PROTEIN,URINE Negative (NEGATIVE); UROBILINOGEN,URINE 0.2 mg/dL (0.2-1.0)
[2019-02-05 15:16] LABS: HCG,QUAL RESULT NEGATIVE (NEGATIVE)
[2019-02-05 15:31] LABS: BACTERIA,URINE Few /HPF (None Seen); RBC,URINE None Seen /HPF (0-1)
== END 2019-02-05 15:44 | disposition home or self-care (01) ==
LOC: EDH 13:29
DX: M06.9 Rheumatoid arthritis, unspecified (principal); R53.83 Other fatigue; M32.9 Systemic lupus erythematosus, unspecified; F31.9 Bipolar disorder, unspecified; Z88.0 Allergy status to penicillin; Z98.890 Other specified postprocedural states
CPT/HCPCS: 36415; 80053; 81001; 81025; 85025; 99284; J7030

== ENCOUNTER 2019-02-07 04:59 | Emergency (ER) | payer MEDICARE ==
[2019-02-07] MEDS ORDERED: ONDANSETRON HCL 4 MG/2 ML VIAL ONE (05:45)
[2019-02-07] MEDS ORDERED: MORPHINE SULFATE 4 MG/1ML SYG ONE (05:46)
[2019-02-07] MEDS ORDERED: SODIUM CHLORIDE 0.9% 1000ML 1,000 ML IV ONE (05:47)
[2019-02-07] MEDS ORDERED: METHYLPREDNISOLONE SOD SUCC 125MG/2ML VIAL ONE (05:47)
[2019-02-07 06:28] LABS: CREATININE 0.7 mg/dL (0.5-1.5); POTASSIUM 3.4 mmol/L (3.5-5.1)
[2019-02-07 06:34] LABS: ALBUMIN 3.1 g/dL (3.5-5.0); BILIRUBIN,TOTAL 0.3 mg/dL (0.2-1.0)
[2019-02-07 06:42] LABS: BASOPHILS % (AUTO) 0.1 % (0.0-5.0); EOSINOPHILS % (AUTO) 0.5 % (0.0-8.0); HEMATOCRIT 32.2 % (36-48); LYMPHOCYTES % (AUTO) 9.6 % (21.0-51.0); MEAN CORPUSCULAR HEMOGLOBIN 27.1 pg (27.0-33.0); MONOCYTES % (AUTO) 7.2 % (3.0-13.0); NEUTROPHILS % (AUTO) 82.6 % (40.0-77.0); PLATELET COUNT (AUTO) 262 K/uL (130-400); RED BLOOD CELL COUNT(AUTO) 3.93 MIL/uL (4.00-5.50); RED CELL DISTRIBUTION WIDTH 16.5 % (11.0-15.5); WHITE BLOOD COUNT (AUTO) 6.9 K/uL (4.8-10.8)
[2019-02-07 07:33] LABS: ERYTHROCYTE SEDIMENTATION RATE 35 MM/HR (0-20)
== END 2019-02-07 07:53 | disposition home or self-care (01) ==
LOC: EDH 04:59
DX: M32.9 Systemic lupus erythematosus, unspecified (principal); M25.562 Pain in left knee; M25.561 Pain in right knee; F31.9 Bipolar disorder, unspecified; M19.90 Unspecified osteoarthritis, unspecified site; Z88.0 Allergy status to penicillin; Z98.890 Other specified postprocedural states
CPT/HCPCS: 36415; 80053; 85025; 85651; 96374; 96375; 99284; J2270; J2405; J2930; J7030

== ENCOUNTER 2019-02-09 06:18 | Emergency (ER) | payer MEDICARE ==
[2019-02-09 07:16] LABS: BASOPHILS % (AUTO) 0.4 % (0.0-5.0); EOSINOPHILS % (AUTO) 0.9 % (0.0-8.0); HEMATOCRIT 30.9 % (36-48); LYMPHOCYTES % (AUTO) 20.9 % (21.0-51.0); MEAN CORPUSCULAR HEMOGLOBIN 27.3 pg (27.0-33.0); MEAN CORPUSCULAR HGB CONC 33.1 g/dL (32.0-36.0); MEAN CORPUSCULAR VOLUME 82.6 fL (79-99); MONOCYTES % (AUTO) 3.9 % (3.0-13.0); NEUTROPHILS % (AUTO) 73.9 % (40.0-77.0); PLATELET COUNT (AUTO) 253 K/uL (130-400); RED BLOOD CELL COUNT(AUTO) 3.75 MIL/uL (4.00-5.50); RED CELL DISTRIBUTION WIDTH 16.4 % (11.0-15.5); WHITE BLOOD COUNT (AUTO) 6.4 K/uL (4.8-10.8)
[2019-02-09 07:25] LABS: CREATININE 0.7 mg/dL (0.5-1.5); POTASSIUM 3.5 mmol/L (3.5-5.1)
[2019-02-09] MEDS ORDERED: MORPHINE SULFATE 4 MG/1ML SYG ONE (07:30)
[2019-02-09] MEDS ORDERED: ONDANSETRON HCL 4 MG/2 ML VIAL ONE (07:30)
[2019-02-09] MEDS ORDERED: DEXAMETHASONE SOD PHOSPHATE 10MG/ML 1ML VIAL ONE (07:30)
[2019-02-09 07:31] LABS: ALBUMIN 2.7 g/dL (3.5-5.0); BILIRUBIN,TOTAL 0.2 mg/dL (0.2-1.0); TOTAL PROTEIN, SERUM 6.4 g/dL (6.0-8.3)
== END 2019-02-09 08:51 | disposition home or self-care (01) ==
LOC: EDH 06:18
DX: M32.9 Systemic lupus erythematosus, unspecified (principal); M06.9 Rheumatoid arthritis, unspecified; M25.50 Pain in unspecified joint
CPT/HCPCS: 36415; 80053; 85025; 96374; 96375; 99284; J1100; J2270; J2405

== ENCOUNTER 2019-03-20 14:29 | Emergency (ER) | payer MEDICARE ==
[2019-03-20 15:17] LABS: CREATININE 0.6 mg/dL (0.5-1.5); POTASSIUM 3.6 mmol/L (3.5-5.1)
[2019-03-20 15:19] LABS: BASOPHILS % (AUTO) 0.6 % (0.0-5.0); EOSINOPHILS % (AUTO) 0.9 % (0.0-8.0); HEMATOCRIT 30.4 % (36-48); LYMPHOCYTES % (AUTO) 12.1 % (21.0-51.0); MEAN CORPUSCULAR HEMOGLOBIN 26.5 pg (27.0-33.0); MEAN CORPUSCULAR VOLUME 80.1 fL (79-99); MONOCYTES % (AUTO) 5.9 % (3.0-13.0); NEUTROPHILS % (AUTO) 80.5 % (40.0-77.0); PLATELET COUNT (AUTO) 313 K/uL (130-400); RED CELL DISTRIBUTION WIDTH 15.5 % (11.0-15.5); WHITE BLOOD COUNT (AUTO) 8.9 K/uL (4.8-10.8)
[2019-03-20 15:24] LABS: ALBUMIN 3.1 g/dL (3.5-5.0); BILIRUBIN,TOTAL 0.2 mg/dL (0.2-1.0); TOTAL PROTEIN, SERUM 7.3 g/dL (6.0-8.3)
[2019-03-20 15:48] LABS: HCG,QUAL RESULT NEGATIVE (NEGATIVE)
[2019-03-20 15:49] LABS: APPEARANCE,URINE Clear (CLEAR); BILIRUBIN,URINE Negative (NEGATIVE); COLOR,URINE Yellow (YELLOW); GLUCOSE, URINE (UA) Negative (NEGATIVE); KETONES,URINE Negative (NEGATIVE); LEUKOCYTE ESTERASE ,URINE Trace (NEGATIVE); NITRATE,URINE Negative (NEGATIVE); OCCULT BLOOD,URINE Moderate (NEGATIVE); PH,URINE 6.5 (5.0-8.0); PROTEIN,URINE Negative (NEGATIVE); UROBILINOGEN,URINE 0.2 mg/dL (0.2-1.0)
[2019-03-20 16:14] LABS: BACTERIA,URINE Few /HPF (None Seen); RBC,URINE 0-1 /HPF (0-1)
[2019-03-20 16:34] LABS: AMPHET/METH SCREEN,URINE NEGATIVE (NEGATIVE); BARBITURATE SCREEN, URINE NEGATIVE (NEGATIVE); BENZODIAZEPINES SCREEN,URINE NEGATIVE (NEGATIVE); CANNABINOID SCREEN,URINE POSITIVE (NEGATIVE); COCAINE SCREEN,URINE NEGATIVE (NEGATIVE); OPIATE SCREEN,URINE NEGATIVE (NEGATIVE); PHENCYCLIDINE SCREEN,URINE NEGATIVE (NEGATIVE)
== END 2019-03-20 16:44 | disposition home or self-care (01) ==
LOC: EDH 14:29
DX: R06.00 Dyspnea, unspecified (principal); R06.02 Shortness of breath; R53.1 Weakness; M06.9 Rheumatoid arthritis, unspecified; L93.0 Discoid lupus erythematosus; G40.909 Epilepsy, unspecified, not intractable, without status epilepticus; Z88.0 Allergy status to penicillin; Z87.891 Personal history of nicotine dependence
CPT/HCPCS: 36415; 71045; 80053; 80305; 81001; 81025; 85025; 93005

== ENCOUNTER → 2019-04-02 | Outpatient (CLI) | payer MEDICARE ==
[~2019-04-02] MED LIST changes: +ALBUTEROL SULFATE 0.083% 2.5 MG/3 ML INH IH ONE
== END | disposition home or self-care (01) ==
LOC: RAH 08:58
PROVIDERS: ATTEND Internal Medicine
DX: J44.9 Chronic obstructive pulmonary disease, unspecified (principal); I08.1 Rheumatic disorders of both mitral and tricuspid valves; I31.3 Pericardial effusion (noninflammatory); Z87.891 Personal history of nicotine dependence
CPT/HCPCS: 93306; 94060; 94727; 94729

== ENCOUNTER 2019-04-30 02:39 | Emergency (ER) | payer MEDICARE ==
[~2019-04-30 02:39] MED LIST changes: -ALBUTEROL SULFATE 0.083% 2.5 MG/3 ML INH IH ONE
[2019-04-30] MEDS ORDERED: METOCLOPRAMIDE 10 MG/2 ML VIAL ONE (03:32)
[2019-04-30] MEDS ORDERED: ONDANSETRON HCL 4 MG/2 ML VIAL ONE (03:32)
[2019-04-30] MEDS ORDERED: SODIUM CHLORIDE 0.9% 1000ML 2,000 ML IV ONE (03:33)
[2019-04-30 03:35] LABS: BASOPHILS % (AUTO) 0.2 % (0.0-5.0); EOSINOPHILS % (AUTO) 0.2 % (0.0-8.0); HEMATOCRIT 33.7 % (36-48); LYMPHOCYTES % (AUTO) 8.1 % (21.0-51.0); MEAN CORPUSCULAR HEMOGLOBIN 25.7 pg (27.0-33.0); MEAN CORPUSCULAR HGB CONC 32.8 g/dL (32.0-36.0); MEAN CORPUSCULAR VOLUME 78.2 fL (79-99); MONOCYTES % (AUTO) 4.1 % (3.0-13.0); NEUTROPHILS % (AUTO) 87.4 % (40.0-77.0); PLATELET COUNT (AUTO) 287 K/uL (130-400); RED CELL DISTRIBUTION WIDTH 16.2 % (11.0-15.5); WHITE BLOOD COUNT (AUTO) 6.2 K/uL (4.8-10.8)
[2019-04-30 03:47] LABS: CREATININE 0.6 mg/dL (0.5-1.5); INR 0.98 (0.85-1.15); PARTIAL THROMBOPLASTIN TIME 26.1 SEC (26.3-35.5); POTASSIUM 3.3 mmol/L (3.5-5.1); PROTHROMBIN TIME 10.3 SEC (9.6-11.6)
[2019-04-30 03:53] LABS: ALBUMIN 3.3 g/dL (3.5-5.0); BILIRUBIN,TOTAL 0.4 mg/dL (0.2-1.0); TOTAL PROTEIN, SERUM 7.4 g/dL (6.0-8.3)
[2019-04-30 04:02] LABS: APPEARANCE,URINE Clear (CLEAR); BILIRUBIN,URINE Negative (NEGATIVE); COLOR,URINE Yellow (YELLOW); GLUCOSE, URINE (UA) Negative (NEGATIVE); KETONES,URINE 15 mg/dL (NEGATIVE); LEUKOCYTE ESTERASE ,URINE Negative (NEGATIVE); NITRATE,URINE Negative (NEGATIVE); OCCULT BLOOD,URINE Negative (NEGATIVE); PROTEIN,URINE Negative (NEGATIVE); UROBILINOGEN,URINE 0.2 mg/dL (0.2-1.0)
[2019-04-30 04:05] LABS: HCG,QUAL RESULT NEGATIVE (NEGATIVE)
== END 2019-04-30 05:33 | disposition home or self-care (01) ==
LOC: EDH 02:39
DX: E86.9 Volume depletion, unspecified (principal); R19.7 Diarrhea, unspecified; R11.10 Vomiting, unspecified; M06.9 Rheumatoid arthritis, unspecified; G40.909 Epilepsy, unspecified, not intractable, without status epilepticus; L93.0 Discoid lupus erythematosus; Z88.0 Allergy status to penicillin
CPT/HCPCS: 36415; 80053; 81003; 81025; 82550; 83605; 83690; 85025; 85610; 85730; 96361; 96374; 96375; 99284; J2405; J2765; J7030

== ENCOUNTER 2019-05-08 11:43 | Emergency (ER) | payer MEDICARE ==
[2019-05-08 12:11] LABS: BASOPHILS % (AUTO) 0.3 % (0.0-5.0); EOSINOPHILS % (AUTO) 0.5 % (0.0-8.0); HEMATOCRIT 35.6 % (36-48); MEAN CORPUSCULAR HEMOGLOBIN 25.3 pg (27.0-33.0); MEAN CORPUSCULAR HGB CONC 32.5 g/dL (32.0-36.0); MEAN CORPUSCULAR VOLUME 77.9 fL (79-99); MONOCYTES % (AUTO) 7.2 % (3.0-13.0); PLATELET COUNT (AUTO) 369 K/uL (130-400); RED BLOOD CELL COUNT(AUTO) 4.57 MIL/uL (4.00-5.50); RED CELL DISTRIBUTION WIDTH 16.2 % (11.0-15.5); WHITE BLOOD COUNT (AUTO) 8.7 K/uL (4.8-10.8)
[2019-05-08 12:30] LABS: CREATININE 0.7 mg/dL (0.5-1.5)
[2019-05-08 12:35] LABS: ALBUMIN 3.6 g/dL (3.5-5.0); BILIRUBIN,TOTAL 0.3 mg/dL (0.2-1.0); TOTAL PROTEIN, SERUM 7.3 g/dL (6.0-8.3)
[2019-05-08] MEDS ORDERED: POTASSIUM BICARB/CIT AC 25 MEQ TABLET.EFF ONE (13:05)
[2019-05-08] MEDS ORDERED: KETOROLAC TROMETHAMINE 30MG/ML ONE (14:01)
== END 2019-05-08 14:36 | disposition home or self-care (01) ==
LOC: EDH 11:43
DX: R07.89 Other chest pain (principal); M32.9 Systemic lupus erythematosus, unspecified; M06.9 Rheumatoid arthritis, unspecified; Z88.0 Allergy status to penicillin; Z79.899 Other long term (current) drug therapy; Z98.890 Other specified postprocedural states; Z87.891 Personal history of nicotine dependence
CPT/HCPCS: 36415; 71045; 80053; 85025; 96372; 99285; J1885

== ENCOUNTER 2019-05-09 14:02 | Emergency (ER) | payer MEDICARE ==
[2019-05-09 14:31] LABS: APPEARANCE,URINE Clear (CLEAR); BILIRUBIN,URINE Negative (NEGATIVE); COLOR,URINE Yellow (YELLOW); GLUCOSE, URINE (UA) Negative (NEGATIVE); KETONES,URINE Negative (NEGATIVE); LEUKOCYTE ESTERASE ,URINE Negative (NEGATIVE); NITRATE,URINE Negative (NEGATIVE); OCCULT BLOOD,URINE Negative (NEGATIVE); PROTEIN,URINE Negative (NEGATIVE); UROBILINOGEN,URINE 0.2 mg/dL (0.2-1.0)
[2019-05-09] MEDS ORDERED: SODIUM CHLORIDE 0.9% 1000ML 1,000 ML IV ONE (14:35)
[2019-05-09 14:39] LABS: HCG,QUAL RESULT NEGATIVE (NEGATIVE)
[2019-05-09] MEDS ORDERED: IOHEXOL-350 75 ML VIAL IV ONE (15:11)
[2019-05-09 16:08] LABS: CREATININE 0.7 mg/dL (0.5-1.5); POTASSIUM 3.6 mmol/L (3.5-5.1)
[2019-05-09 16:19] LABS: BASOPHILS % (AUTO) 0.2 % (0.0-5.0); EOSINOPHILS % (AUTO) 0.3 % (0.0-8.0); HEMATOCRIT 38.1 % (36-48); LYMPHOCYTES % (AUTO) 5.8 % (21.0-51.0); MEAN CORPUSCULAR HEMOGLOBIN 25.8 pg (27.0-33.0); MEAN CORPUSCULAR HGB CONC 32.6 g/dL (32.0-36.0); MEAN CORPUSCULAR VOLUME 78.9 fL (79-99); NEUTROPHILS % (AUTO) 88.7 % (40.0-77.0); PLATELET COUNT (AUTO) 345 K/uL (130-400); RED BLOOD CELL COUNT(AUTO) 4.83 MIL/uL (4.00-5.50); RED CELL DISTRIBUTION WIDTH 16.3 % (11.0-15.5); WHITE BLOOD COUNT (AUTO) 9.2 K/uL (4.8-10.8)
[2019-05-09] MEDS ORDERED: KETOROLAC TROMETHAMINE 60 MG/2 ML VIAL ONE (16:24)
== END 2019-05-09 17:10 | disposition home or self-care (01) ==
LOC: EDH 14:02
DX: R07.89 Other chest pain (principal); M32.9 Systemic lupus erythematosus, unspecified; M19.90 Unspecified osteoarthritis, unspecified site; Z88.0 Allergy status to penicillin
CPT/HCPCS: 36415; 71275; 80048; 81003; 81025; 85025; 93005; 96372; 99285; J1885; J7030; Q9967

== ENCOUNTER → 2019-07-02 | Outpatient (CLI) | payer MEDICARE | END | disposition home or self-care (01) | LOC: RAH 12:55 | PROVIDERS: ATTEND Internal Medicine Critical Care Medicine | DX: J98.11 Atelectasis (principal); J84.9 Interstitial pulmonary disease, unspecified | CPT/HCPCS: 71250 ==

== ENCOUNTER 2019-10-21 23:15 | Emergency (ER) | payer MEDICARE ==
[2019-10-21] MEDS ORDERED: KETOROLAC TROMETHAMINE 30MG/ML ONE (23:52)
[2019-10-21] MEDS ORDERED: ONDANSETRON HCL 4 MG/2 ML VIAL ONE (23:52)
[2019-10-21] MEDS ORDERED: SODIUM CHLORIDE 0.9% 1000ML 1,000 ML IV ONE (23:53)
[2019-10-21 23:54] LABS: BASOPHILS % (AUTO) 0.1 % (0.0-5.0); EOSINOPHILS % (AUTO) 0.2 % (0.0-8.0); LYMPHOCYTES % (AUTO) 4.4 % (21.0-51.0); MEAN CORPUSCULAR HEMOGLOBIN 25.6 pg (27.0-33.0); MEAN CORPUSCULAR HGB CONC 30.9 g/dL (32.0-36.0); MEAN CORPUSCULAR VOLUME 82.7 fL (79-99); MONOCYTES % (AUTO) 3.4 % (3.0-13.0); NEUTROPHILS % (AUTO) 91.3 % (40.0-77.0); PLATELET COUNT (AUTO) 270 K/uL (130-400); RED BLOOD CELL COUNT(AUTO) 3.87 MIL/uL (4.00-5.50); RED CELL DISTRIBUTION WIDTH 14.7 % (11.0-15.5); WHITE BLOOD COUNT (AUTO) 11.9 K/uL (4.8-10.8)
[2019-10-22 00:03] LABS: CREATININE 0.7 mg/dL (0.5-1.5)
[2019-10-22] MEDS ORDERED: POTASSIUM BICARB/CIT AC 25 MEQ TABLET.EFF ONE (00:55)
== END 2019-10-22 01:54 | disposition home or self-care (01) ==
LOC: EDH 23:15
DX: B34.9 Viral infection, unspecified (principal); E86.0 Dehydration; E87.6 Hypokalemia; M06.9 Rheumatoid arthritis, unspecified; J45.909 Unspecified asthma, uncomplicated; Z98.890 Other specified postprocedural states; Z88.0 Allergy status to penicillin
CPT/HCPCS: 36415; 80048; 85025; 87804 ×2; 96361; 96374; 96375; 99284; J1885; J2405; J7030

== ENCOUNTER 2019-10-26 07:39 | Inpatient (IN) | payer MEDICARE ==
[~2019-10-26] VITALS: Ht 154.9 cm; Wt 54.4 kg
[2019-10-26 08:04] LABS: APPEARANCE,URINE SL CLOUDY (CLEAR); BILIRUBIN,URINE NEGATIVE (NEGATIVE); COLOR,URINE YELLOW (YELLOW); GLUCOSE, URINE (UA) NEGATIVE (NEGATIVE); KETONES,URINE 15 mg/dL (NEGATIVE); LEUKOCYTE ESTERASE ,URINE SMALL (NEGATIVE); NITRATE,URINE NEGATIVE (NEGATIVE); OCCULT BLOOD,URINE NEGATIVE (NEGATIVE); PROTEIN,URINE NEGATIVE (NEGATIVE); UROBILINOGEN,URINE 0.2 mg/dL (0.2-1.0)
[2019-10-26 08:12] LABS: HCG,QUAL RESULT NEGATIVE (NEGATIVE)
[2019-10-26 08:14] LABS: BACTERIA,URINE Few /HPF (None Seen); MUCUS,URINE Moderate LPF (None Seen); RBC,URINE 0-1 /HPF (0-1); SQUAMOUS EPITHELIAL CELL,UR Many /HPF (0-2); YEAST,URINE BUDDING Few /HPF (None Seen)
[2019-10-26] MEDS ORDERED: ONDANSETRON HCL 4 MG/2 ML VIAL ONE (08:16)
[2019-10-26] MEDS ORDERED: DEXAMETHASONE SOD PHOSPHATE 10MG/ML 1ML VIAL ONE (08:16)
[2019-10-26] MEDS ORDERED: SODIUM CHLORIDE 0.9% 1000ML 2,000 ML IV ONE (08:17)
[2019-10-26 08:20] LABS: BASOPHILS % (AUTO) 0.4 % (0.0-5.0); HEMATOCRIT 37.2 % (36-48); LYMPHOCYTES % (AUTO) 7.2 % (21.0-51.0); MEAN CORPUSCULAR HEMOGLOBIN 25.5 pg (27.0-33.0); MEAN CORPUSCULAR HGB CONC 30.9 g/dL (32.0-36.0); MEAN CORPUSCULAR VOLUME 82.5 fL (79-99); MONOCYTES % (AUTO) 5.3 % (3.0-13.0); NEUTROPHILS % (AUTO) 82.9 % (40.0-77.0); PLATELET COUNT (AUTO) 383 K/uL (130-400); RED BLOOD CELL COUNT(AUTO) 4.51 MIL/uL (4.00-5.50); RED CELL DISTRIBUTION WIDTH 14.6 % (11.0-15.5); WHITE BLOOD COUNT (AUTO) 7.9 K/uL (4.8-10.8)
[2019-10-26] MEDS ORDERED: IPRATROPIUM/ALBUTEROL SULFATE 3 ML SOLUTION IH ONE (08:20)
[2019-10-26 08:29] LABS: RAPID GROUP A STREP NEGATIVE (NEGATIVE)
[2019-10-26] MEDS ORDERED: LEVOFLOXACIN 500 MG/D5W 100 ML 100 ML ONE (10:12)
[2019-10-26 10:13] LABS: CREATININE 0.8 mg/dL (0.5-1.5); POTASSIUM 3.4 mmol/L (3.5-5.1)
[2019-10-26 10:17] LABS: ALBUMIN 3.4 g/dL (3.5-5.0); BILIRUBIN,TOTAL 0.3 mg/dL (0.2-1.0); TOTAL PROTEIN, SERUM 8.5 g/dL (6.0-8.3)
--- NOTE | 2019-10-26 12:00 | NUR ---
REPORT RECEIVED FROM PALMER RAE (ED). PATIENT WITH C/O COUGH, BODY ACHES, FEVER AND VOMITING. PATIENT WILL BE ADMITTED UNDER DR. CHIN' SERVICES. ANTIBIOTICS, DUO NEB TREATMENTS AND BOLUS OF NS GIVEN. PATIENT STABLE AT THIS TIME.
[2019-10-26 12:35] VITALS: BP 92/52
[2019-10-26 13:27] LABS: AMPHET/METH SCREEN,URINE NEGATIVE (NEGATIVE); BARBITURATE SCREEN, URINE NEGATIVE (NEGATIVE); BENZODIAZEPINES SCREEN,URINE NEGATIVE (NEGATIVE); CANNABINOID SCREEN,URINE POSITIVE (NEGATIVE); COCAINE SCREEN,URINE NEGATIVE (NEGATIVE); OPIATE SCREEN,URINE POSITIVE (NEGATIVE); PHENCYCLIDINE SCREEN,URINE NEGATIVE (NEGATIVE)
[2019-10-26] MEDS: IPRATROPIUM/ALBUTEROL SULFATE 3 ML SOLUTION IH SCH ×2 (15:16→18:34)
[2019-10-26 16:00] VITALS: BP 100/63
[2019-10-26] MEDS ORDERED: ALBU1.252 IH (17:02)
[2019-10-26] MEDS ORDERED: METH25VI17 IJ (17:02)
[2019-10-26] MEDS ORDERED: FLUT1BLS IH (17:02)
[2019-10-26] MEDS ORDERED: MYCO500T5 PO ×2 (17:02)
[2019-10-26] MEDS ORDERED: PRED10TA3 PO (17:02)
[2019-10-26] MEDS ORDERED: MONT10TA26 PO (17:02)
[2019-10-26 19:00] VITALS: BP 105/60
[2019-10-26] MEDS ORDERED: ACETAMINOPHEN EXTRA STRENGTH 500 MG TABLET ONE (21:51)
[2019-10-26] MEDS ORDERED: ALBUTEROL SULFATE 0.042% 1.25 MG/3 ML INH IH PRN (22:00)
[2019-10-26] MEDS ORDERED: METHOTREXATE SODIUM/PF 25 MG/ML ML IJ SCH (22:00)
[2019-10-27] VITALS (7 sets, daily range): BP systolic 87–144; BP diastolic 45–67
[2019-10-27] MEDS: IPRATROPIUM/ALBUTEROL SULFATE 3 ML SOLUTION IH SCH ×5 (00:08→23:35)
[2019-10-27] MEDS: 1/2 NORMAL SALINE 1,000 ML IV SCH ×2 (07:17→20:05)
[2019-10-27] MEDS: LEVOFLOXACIN 500 MG/D5W 100 ML 100 ML IV SCH (08:52)
[2019-10-27] MEDS: PREDNISONE 10 MG TABLET PO SCH ×2 (08:52→21:19)
--- NOTE | 2019-10-27 12:07 | NUR ---
INITIAL CM NOTE MET W/ PATIENT FOR DISCHARGE PLANNING. PATIENT LIVES W/ MINOR CHILDREN, [facility] WILL PROVIDE TRANSPORT HOME; NO DME, INDEPENDENT, DRIVES, HAS A NEBULIZER AVAILABLE (CHILD'S). STATES HAS BEEN UNABLE TO BREATHE WELL X 5 DAYS. Addendum: 10/27/19 at 1216 by JOHNNY BABCOCK RN CM Amended: Links added.
[2019-10-27] MEDS: LEVETIRACETAM 500 MG TABLET PO SCH ×2 (12:58→21:00)
[2019-10-27] MEDS ORDERED: MYCOPHENOLATE MOFETIL 1500 MG PO SCH ×2 (13:02→21:00)
[2019-10-27] MEDS: ACETAMINOPHEN EXTRA STRENGTH 500 MG TABLET PO PRN (13:59)
[2019-10-27] MEDS: MYCOPHENOLATE MOFETIL 1500 MG PO SCH (21:00)
[2019-10-27] MEDS: MONTELUKAST SODIUM 10 MG TAB PO SCH (21:00)
[2019-10-27] MEDS ORDERED: ONDANSETRON HCL 4 MG/2 ML VIAL ONE (21:21)
[2019-10-28] MEDS: 1/2 NORMAL SALINE 1,000 ML IV SCH ×5 (03:27→10:02)
[2019-10-28 03:54] VITALS: BP 93/50
[2019-10-28] MEDS: ONDANSETRON HCL 4 MG/2 ML VIAL IVP PRN (05:29)
[2019-10-28] MEDS: IPRATROPIUM/ALBUTEROL SULFATE 3 ML SOLUTION IH SCH ×4 (06:17→23:31)
[2019-10-28 08:00] VITALS: BP 104/55
[2019-10-28] MEDS: FOLIC ACID PO SCH (09:00)
[2019-10-28] MEDS ORDERED: BREO ELLIPTA 200-25 MCG INH IH PRN (09:00)
[2019-10-28] MEDS: LEVOFLOXACIN 500 MG/D5W 100 ML 100 ML IV SCH (10:06)
[2019-10-28] MEDS: LEVETIRACETAM 500 MG TABLET PO SCH ×2 (10:06→21:31)
[2019-10-28] MEDS: PREDNISONE 10 MG TABLET PO SCH ×2 (10:06→21:30)
[2019-10-28] MEDS: PANTOPRAZOLE SODIUM 40 MG TABLET.DR PO SCH (10:06)
[2019-10-28 11:26] VITALS: BP 102/57
--- NOTE | 2019-10-28 14:30 | NUR ---
[id number] patient signed IM Letter, I faxed IM Letter to [phone] and placed in chart under consent tab
[2019-10-28 16:00] VITALS: BP 103/56
[2019-10-28] MEDS: ACETAMINOPHEN EXTRA STRENGTH 500 MG TABLET PO PRN (17:42)
[2019-10-28 20:16] VITALS: BP 100/60
[2019-10-28] MEDS: MYCOPHENOLATE MOFETIL 1500 MG PO SCH (21:00)
[2019-10-28] MEDS: MONTELUKAST SODIUM 10 MG TAB PO SCH (21:30)
[2019-10-28 23:13] VITALS: BP 110/61
[2019-10-29] MEDS: ONDANSETRON HCL 4 MG/2 ML VIAL IVP PRN
[2019-10-29 03:00] VITALS: BP 96/56
[2019-10-29] MEDS: ACETAMINOPHEN EXTRA STRENGTH 500 MG TABLET PO PRN (03:24)
[2019-10-29 04:52] LABS: HEMATOCRIT 35.5 % (36-48); MEAN CORPUSCULAR HEMOGLOBIN 25.4 pg (27.0-33.0); MEAN CORPUSCULAR HGB CONC 30.4 g/dL (32.0-36.0); MEAN CORPUSCULAR VOLUME 83.3 fL (79-99); PLATELET COUNT (AUTO) 397 K/uL (130-400); RED BLOOD CELL COUNT(AUTO) 4.26 MIL/uL (4.00-5.50); RED CELL DISTRIBUTION WIDTH 14.7 % (11.0-15.5); WHITE BLOOD COUNT (AUTO) 10.4 K/uL (4.8-10.8)
[2019-10-29 05:25] LABS: CREATININE 0.7 mg/dL (0.5-1.5); POTASSIUM 4.3 mmol/L (3.5-5.1)
[2019-10-29] MEDS: IPRATROPIUM/ALBUTEROL SULFATE 3 ML SOLUTION IH SCH ×2 (06:14→10:45)
[2019-10-29 08:06] VITALS: BP 103/62
[2019-10-29] MEDS: FOLIC ACID PO SCH (09:00)
[2019-10-29] MEDS: LEVOFLOXACIN 500 MG/D5W 100 ML 100 ML IV SCH (09:20)
[2019-10-29] MEDS: LEVETIRACETAM 500 MG TABLET PO SCH (09:21)
[2019-10-29] MEDS: PANTOPRAZOLE SODIUM 40 MG TABLET.DR PO SCH (09:21)
[2019-10-29] MEDS: PREDNISONE 10 MG TABLET PO SCH (09:21)
--- NOTE | 2019-10-29 11:15 | NUR ---
DISCHARGE PATIENT GIVEN DISCHARGE INSTRUCTIONS VIA TEACH BACK. 20G PIV TO LW DISCONTINUED, TIP INTACT. RX GIVEN FOR LEVAQUIN, BREO AND PROAIR. PATIENT TO MAKE FOLLOW UP APPOINTMENT WITH DR. RHODES IN 2 TO 3 DAYS. PATIENT STABLE AT THIS TIME. BLANCA MEJIA WHEELED PATIENT TO LOBBY.
[2019-11-01] MEDS ORDERED: METHOTREXATE IJ SCH (10:00)
== END 2019-10-29 12:00 | disposition home or self-care (01) | DRG 195 ==
LOC: EDH 07:39 → EDHIP 10:23 → OBSVTOIN 10:23 → INTOOBSV 10:23 → 4CH 12:08
PROVIDERS: ADMIT Internal Medicine; ATTEND Internal Medicine
DX: J18.9 Pneumonia, unspecified organism (principal); J45.909 Unspecified asthma, uncomplicated; L93.0 Discoid lupus erythematosus; M06.9 Rheumatoid arthritis, unspecified; D64.9 Anemia, unspecified; R56.9 Unspecified convulsions; Z88.0 Allergy status to penicillin
CPT/HCPCS: 36415; 71045; 80048; 80053; 80305; 81001; 81025; 82550; 83690; 84484; 85025; 85027; 87040; 87804; 87880; 93005; 94640; 94664; G0378; J1100; J1956; J2405; J7030; J7512

== ENCOUNTER 2020-07-04 06:42 | Emergency (ER) | payer MEDICARE ==
[~2020-07-04 06:42] MED LIST changes: +ALBU1.252 IH; -FLUO10CA21 PO; +FLUT1BLS IH; -HYDR200T82 PO; +METH25VI17 IJ; +MONT10TA26 PO; +MYCO500T5 PO; +PRED10TA3 PO
[2020-07-04 07:04] LABS: BASOPHILS % (AUTO) 0.2 % (0.0-5.0); EOSINOPHILS % (AUTO) 0.9 % (0.0-8.0); HEMATOCRIT 30.8 % (36-48); LYMPHOCYTES % (AUTO) 7.3 % (21.0-51.0); MEAN CORPUSCULAR HEMOGLOBIN 28.3 pg (27.0-33.0); MEAN CORPUSCULAR HGB CONC 32.1 g/dL (32.0-36.0); MONOCYTES % (AUTO) 8.1 % (3.0-13.0); PLATELET COUNT (AUTO) 249 K/uL (130-400); RED CELL DISTRIBUTION WIDTH 13.6 % (11.0-15.5); WHITE BLOOD COUNT (AUTO) 5.7 K/uL (4.8-10.8)
[2020-07-04 07:37] LABS: ALBUMIN 3.1 g/dL (3.5-5.0); BILIRUBIN,TOTAL 0.3 mg/dL (0.2-1.0); CREATININE 0.6 mg/dL (0.5-1.5); POTASSIUM 3.3 mmol/L (3.5-5.1); TOTAL PROTEIN, SERUM 6.7 g/dL (6.0-8.3)
[2020-07-04 07:45] LABS: INR 0.92 (0.85-1.15); PARTIAL THROMBOPLASTIN TIME 27.6 SEC (26.3-35.5)
[2020-07-04] MEDS ORDERED: POTASSIUM CHLORIDE 20 MEQ ERTAB PO ONE (08:22)
[2020-07-04] MEDS ORDERED: METHYLPREDNISOLONE SOD SUCC 125MG/2ML VIAL ONE (08:22)
[2020-07-04] MEDS ORDERED: KETOROLAC TROMETHAMINE 30MG/ML ONE (08:22)
[2020-07-04] MEDS ORDERED: HYDROCODONE/ACETAMINOPHEN 5/325 MG TAB ONE (09:24)
== END 2020-07-04 10:32 | disposition home or self-care (01) ==
LOC: EDH 06:42
DX: H66.91 Otitis media, unspecified, right ear (principal); M94.0 Chondrocostal junction syndrome [Tietze]; L93.0 Discoid lupus erythematosus; E87.6 Hypokalemia; M06.9 Rheumatoid arthritis, unspecified; J45.909 Unspecified asthma, uncomplicated; Z98.890 Other specified postprocedural states; Z88.0 Allergy status to penicillin
CPT/HCPCS: 36415; 71045; 80053; 82550; 83880; 84484; 84702; 85025; 85610; 85730; 93005; 96374; 96375; 99285; J1885; J2930

== ENCOUNTER 2022-03-07 06:05 | Emergency (ER) | payer MEDICARE ==
[~2022-03-07] VITALS: Ht 154.9 cm; Wt 54.9 kg
[~2022-03-07 06:05] MED LIST changes: +MONT-39 PO; -MONT10TA26 PO
[2022-03-07 06:56] LABS: BASOPHILS % (AUTO) 0.4 % (0.0-5.0); EOSINOPHILS % (AUTO) 1.9 % (0.0-8.0); HEMATOCRIT 32.9 % (36-48); LYMPHOCYTES % (AUTO) 11.5 % (21.0-51.0); MEAN CORPUSCULAR HEMOGLOBIN 28.5 pg (27.0-33.0); MEAN CORPUSCULAR HGB CONC 32.8 g/dL (32.0-36.0); MEAN CORPUSCULAR VOLUME 86.8 fL (79-99); MONOCYTES % (AUTO) 7.4 % (3.0-13.0); NEUTROPHILS % (AUTO) 78.2 % (40.0-77.0); PLATELET COUNT (AUTO) 283 K/uL (130-400); RED BLOOD CELL COUNT(AUTO) 3.79 MIL/uL (4.00-5.50); RED CELL DISTRIBUTION WIDTH 12.8 % (11.0-15.5); WHITE BLOOD COUNT (AUTO) 4.7 K/uL (4.8-10.8)
[2022-03-07 07:29] LABS: ALBUMIN 3.2 g/dL (3.5-5.0); CREATININE 0.7 mg/dL (0.5-1.5); POTASSIUM 3.4 mmol/L (3.5-5.1)
[2022-03-07 07:30] LABS: APPEARANCE,URINE CLEAR (CLEAR); BILIRUBIN,URINE NEGATIVE (NEGATIVE); COLOR,URINE YELLOW (YELLOW); GLUCOSE, URINE (UA) NEGATIVE (NEGATIVE); KETONES,URINE NEGATIVE (NEGATIVE); LEUKOCYTE ESTERASE ,URINE TRACE (NEGATIVE); NITRATE,URINE NEGATIVE (NEGATIVE); OCCULT BLOOD,URINE TRACE-LYSED (NEGATIVE); PROTEIN,URINE NEGATIVE (NEGATIVE); UROBILINOGEN,URINE 0.2 mg/dL (0.2-1.0)
[2022-03-07] MEDS ORDERED: ORPHENADRINE CITRATE 30 MG/ML ML IM ONE (07:30)
[2022-03-07] MEDS ORDERED: HYDROCODONE/ACETAMINOPHEN 10/325 MG TAB PO ONE (07:30)
[2022-03-07] MEDS ORDERED: KETOROLAC 30MG VIAL (30MG/ML) IVP ONE (07:30)
[2022-03-07 07:34] LABS: HCG,QUALITATIVE URINE NEGATIVE (NEGATIVE)
[2022-03-07 07:35] LABS: BACTERIA,URINE Few /HPF (None Seen); MUCUS,URINE Rare LPF (None Seen); RBC,URINE 0-1 /HPF (0-1); SQUAMOUS EPITHELIAL CELL,UR Many /HPF (0-2)
[2022-03-07] MEDS ORDERED: POTASSIUM BICARB/CIT AC 25 MEQ TABLET.EFF PO STA (08:01)
[2022-03-07] MEDS ORDERED: METH-662 PO (09:01)
[2022-03-07] MEDS ORDERED: ACET-66 PO (09:02)
[2022-03-07 09:30] VITALS: BP 114/78
== END 2022-03-07 09:46 | disposition home or self-care (01) ==
LOC: EDH 06:05
DX: E87.6 Hypokalemia (principal); M54.50 Low back pain, unspecified; Z20.822 Contact with and (suspected) exposure to COVID-19; M32.9 Systemic lupus erythematosus, unspecified; M79.7 Fibromyalgia; G40.909 Epilepsy, unspecified, not intractable, without status epilepticus; M19.90 Unspecified osteoarthritis, unspecified site; Z88.0 Allergy status to penicillin; Z79.51 Long term (current) use of inhaled steroids; Z79.52 Long term (current) use of systemic steroids; Z79.899 Other long term (current) drug therapy
CPT/HCPCS: 99285; 96374; 72131; 87635; 80053; 85025; 87804 ×2; 81001; 81025; 36415; 96372; C9803; J1885; J2360

== ENCOUNTER 2022-12-13 11:57 | Emergency (ER) | payer MEDICARE ==
[~2022-12-13] VITALS: Ht 154.9 cm; Wt 55.3 kg
[~2022-12-13 11:57] MED LIST changes: +ACET-66 PO; +METH-662 PO
[2022-12-13] MEDS ORDERED: MUPI22OI2 TP (12:52)
[2022-12-13] MEDS ORDERED: LEVETIRACETAM 500 MG TABLET PO SCH (13:00)
[2022-12-13 14:27] VITALS: BP 108/62
== END 2022-12-13 14:30 | disposition home or self-care (01) ==
LOC: EDH 11:57
DX: G40.909 Epilepsy, unspecified, not intractable, without status epilepticus (principal); L08.9 Local infection of the skin and subcutaneous tissue, unspecified; M79.7 Fibromyalgia; M19.90 Unspecified osteoarthritis, unspecified site; Z88.0 Allergy status to penicillin; Z79.899 Other long term (current) drug therapy

== ENCOUNTER 2023-01-29 15:24 | Observation (INO) | payer MEDICARE ==
[~2023-01-29] VITALS: Ht 154.9 cm; Wt 56.7 kg
[~2023-01-29 15:24] MED LIST changes: +MUPI22OI2 TP
[2023-01-29] MEDS ORDERED: 0.9%NACL 1000ML 1,000 ML IV SCH (16:00)
[2023-01-29] MEDS ORDERED: LEVOFLOXACIN 500 MG/D5W 100 ML 100 ML IV SCH (16:00)
[2023-01-29] MEDS ORDERED: ACETAMINOPHEN 325 MG TAB PO PRN (16:00)
[2023-01-29] MEDS ORDERED: ZOLPIDEM TARTRATE 5 MG TAB PO PRN (16:00)
[2023-01-29] MEDS ORDERED: ONDANSETRON 4MG INJ IVP PRN (16:00)
[2023-01-29 16:06] LABS: APPEARANCE,URINE CLOUDY (CLEAR); BILIRUBIN,URINE NEGATIVE (NEGATIVE); COLOR,URINE LIGHT-YELLOW (YELLOW); GLUCOSE, URINE (UA) NEGATIVE (NEGATIVE); KETONES,URINE NEGATIVE (NEGATIVE); LEUKOCYTE ESTERASE ,URINE 25 Leu/uL (NEGATIVE); NITRATE,URINE NEGATIVE (NEGATIVE); OCCULT BLOOD,URINE NEGATIVE (NEGATIVE); PROTEIN,URINE NEGATIVE (NEGATIVE); UROBILINOGEN,URINE 0.2 mg/dL (0.2-1.0)
[2023-01-29 16:11] LABS: HCG,QUALITATIVE URINE NEGATIVE (NEGATIVE)
[2023-01-29 16:12] LABS: BACTERIA,URINE MOD /HPF (None Seen); MUCUS,URINE FEW LPF (None Seen); SQUAMOUS EPITHELIAL CELL,UR MANY /HPF (0-2)
[2023-01-29 16:34] LABS: BASOPHILS % (AUTO) 0.5 % (0.0-5.0); EOSINOPHILS % (AUTO) 1.4 % (0.0-8.0); HEMATOCRIT 35.2 % (36-48); LYMPHOCYTES % (AUTO) 16.9 % (21.0-51.0); MEAN CORPUSCULAR HEMOGLOBIN 27.9 pg (27.0-33.0); MEAN CORPUSCULAR HGB CONC 31.8 g/dL (32.0-36.0); MEAN CORPUSCULAR VOLUME 87.6 fL (79-99); MONOCYTES % (AUTO) 13.5 % (3.0-13.0); NEUTROPHILS % (AUTO) 66.4 % (40.0-77.0); PLATELET COUNT (AUTO) 249 K/uL (130-400); RED BLOOD CELL COUNT(AUTO) 4.02 MIL/uL (4.00-5.50); RED CELL DISTRIBUTION WIDTH 13.5 % (11.0-15.5); WHITE BLOOD COUNT (AUTO) 5.6 K/uL (4.8-10.8)
[2023-01-29 16:49] LABS: CREATININE 0.8 mg/dL (0.5-1.5); POTASSIUM 3.5 mmol/L (3.5-5.1)
[2023-01-29 16:54] LABS: ALBUMIN 3.1 g/dL (3.5-5.0); TOTAL PROTEIN, SERUM 6.7 g/dL (6.0-8.3)
[2023-01-29] MEDS: 1/2 NS 1000ML 1,000 ML IV SCH (17:40)
[2023-01-29] MEDS: MORPHINE 2 MG SYG IVP PRN ×2 (18:47→23:24)
[2023-01-29] MEDS: MYCOPHENOLATE MOFETIL 250 MG CAPSULE PO SCH (20:44)
[2023-01-29] MEDS: LEVETIRACETAM 500 MG TABLET PO SCH (20:44)
[2023-01-29] MEDS ORDERED: FLUO20TA29 PO (20:51)
[2023-01-29] MEDS ORDERED: FLUT1BLS3 IH (20:51)
[2023-01-29] MEDS ORDERED: HYDR200T75 PO (20:51)
[2023-01-29] MEDS ORDERED: VITAMIN D3 PO (20:57)
[2023-01-29] MEDS ORDERED: FLUT16H NASAL (20:57)
[2023-01-29] MEDS ORDERED: ALBUTEROL INH IH (20:59)
[2023-01-29 22:32] VITALS: BP 106/62
[2023-01-30] MEDS: 1/2 NS 1000ML 1,000 ML IV SCH (01:44)
[2023-01-30 04:22] VITALS: BP 99/57
[2023-01-30 04:55] LABS: BASOPHILS % (AUTO) 0.3 % (0.0-5.0); EOSINOPHILS % (AUTO) 2.1 % (0.0-8.0); HEMATOCRIT 33.3 % (36-48); LYMPHOCYTES % (AUTO) 18.8 % (21.0-51.0); MEAN CORPUSCULAR HGB CONC 31.8 g/dL (32.0-36.0); MEAN CORPUSCULAR VOLUME 88.1 fL (79-99); MONOCYTES % (AUTO) 12.8 % (3.0-13.0); NEUTROPHILS % (AUTO) 64.3 % (40.0-77.0); PLATELET COUNT (AUTO) 250 K/uL (130-400); RED BLOOD CELL COUNT(AUTO) 3.78 MIL/uL (4.00-5.50); RED CELL DISTRIBUTION WIDTH 13.5 % (11.0-15.5); WHITE BLOOD COUNT (AUTO) 5.9 K/uL (4.8-10.8)
[2023-01-30 05:09] LABS: ALBUMIN 2.7 g/dL (3.5-5.0); CREATININE 0.7 mg/dL (0.5-1.5); POTASSIUM 3.4 mmol/L (3.5-5.1); TOTAL PROTEIN, SERUM 5.9 g/dL (6.0-8.3)
[2023-01-30] MEDS ORDERED: POTASSIUM CHLORIDE 20MEQ/100ML 100 ML IV PRN (06:30)
[2023-01-30] MEDS ORDERED: POTASSIUM CHLORIDE 10% ELIXIR 20 MEQ/15 ML UDCUP PO PRN (06:30)
[2023-01-30] MEDS: KCL 20 MEQ ERTAB PO PRN ×2 (06:52→09:54)
[2023-01-30 07:30] VITALS: BP 102/58
[2023-01-30] MEDS: MORPHINE 2 MG SYG IVP PRN (07:43)
[2023-01-30] MEDS ORDERED: TAMSULOSIN HCL 0.4 MG CAP.ER.24H PO SCH (09:00)
[2023-01-30] MEDS ORDERED: KETOROLAC 30MG VIAL (30MG/ML) IVP ONE (09:00)
[2023-01-30] MEDS: MYCOPHENOLATE MOFETIL 250 MG CAPSULE PO SCH (09:00)
[2023-01-30] MEDS ORDERED: PANTOPRAZOLE 40 MG/VIAL IVP SCH (09:00)
[2023-01-30] MEDS: LEVETIRACETAM 500 MG TABLET PO SCH (09:00)
== END 2023-01-30 11:05 | disposition home or self-care (01) ==
LOC: EDH 15:24 → EDHIP 15:37 → INTOOBSV 15:37 → DIRECT 17:14 → WSH 23:17
PROVIDERS: ADMIT Internal Medicine; ATTEND Internal Medicine
DX: N39.0 Urinary tract infection, site not specified (principal); I21.4 Non-ST elevation (NSTEMI) myocardial infarction; N20.0 Calculus of kidney; G40.909 Epilepsy, unspecified, not intractable, without status epilepticus; I25.10 Atherosclerotic heart disease of native coronary artery without angina pectoris; M48.00 Spinal stenosis, site unspecified; Z79.899 Other long term (current) drug therapy
CPT/HCPCS: 96376 ×2; 96361 ×2; 96365; 96375 ×2; 99285; 80053 ×2; 83690; 85025 ×2; 87040 ×2; 87088; 83605; 81001; 81025; 36415 ×2; 71045; 74176; 93005; G0378 ×14; J1956; J2270 ×3; J7517 ×2; J1885; C9113

== ENCOUNTER → 2023-04-23 | Outpatient (CLI) | payer MEDICARE ==
[~2023-04-23] MED LIST changes: -ACET-66 PO; -ALBU1.252 IH; +ALBUTEROL INH IH; +FLUO20TA29 PO; +FLUT16H NASAL; -FLUT1BLS IH; +FLUT1BLS3 IH; -FOLI20CA PO; +HYDR200T75 PO; -METH-662 PO; -METH25VI17 IJ; -MONT-39 PO; -MUPI22OI2 TP; -PRED10TA3 PO; +VITAMIN D3 PO
== END | disposition home or self-care (01) ==
LOC: OIH 15:16
PROVIDERS: ATTEND Internal Medicine
DX: S63.259A Unspecified dislocation of unspecified finger, initial encounter (principal); X58.XXXA Exposure to other specified factors, initial encounter; Y93.89 Activity, other specified; Y92.89 Other specified places as the place of occurrence of the external cause; Y99.8 Other external cause status
CPT/HCPCS: 73130

== ENCOUNTER 2024-05-15 09:40 | Observation (INO) | payer MEDICARE ==
[~2024-05-15] VITALS: Ht 154.9 cm; Wt 59.4 kg
[2024-05-15] MEDS: leveTIRACEtam 500 MG/5 ML SD VIAL IV SCH (10:02)
[2024-05-15] MEDS: 0.9% NACL 500ML IV.SOLN 500 ML IV SCH (10:02)
[2024-05-15] MEDS: ondanSETRON 4MG INJ IVP ONE (10:02)
[2024-05-15 10:48] LABS: BASOPHILS # (AUTO) 0.01 K/uL (0.00-0.20); BASOPHILS % (AUTO) 0.1 % (0.0-5.0); EOSINOPHILS # (AUTO) 0.05 K/uL (0.00-0.70); EOSINOPHILS % (AUTO) 0.7 % (0.0-8.0); HEMATOCRIT 35.1 % (36-48); IMMATURE GRANULOCYTE ABSOLUTE 0.04 K/uL (0-1); LYMPHOCYTES # (AUTO) 0.7 K/uL (1.0-4.8); LYMPHOCYTES % (AUTO) 9.8 % (21.0-51.0); MEAN CORPUSCULAR HEMOGLOBIN 28.6 pg (27.0-33.0); MEAN CORPUSCULAR HGB CONC 32.8 g/dL (32.0-36.0); MEAN CORPUSCULAR VOLUME 87.3 fL (79-99); MONOCYTES # (AUTO) 0.5 K/uL (0.1-1.0); MONOCYTES % (AUTO) 7.6 % (3.0-13.0); NEUTROPHILS # (AUTO) 5.5 K/uL (1.8-7.7); NEUTROPHILS % (AUTO) 81.2 % (40.0-77.0); PLATELET COUNT (AUTO) 203 K/uL (130-400); RED BLOOD CELL COUNT(AUTO) 4.02 MIL/uL (4.00-5.50); RED CELL DISTRIBUTION WIDTH 12.7 % (11.0-15.5); WHITE BLOOD COUNT (AUTO) 6.8 K/uL (4.8-10.8)
[2024-05-15 11:08] LABS: APPEARANCE,URINE CLEAR (CLEAR); BILIRUBIN,URINE NEGATIVE (NEGATIVE); COLOR,URINE COLORLESS (YELLOW); GLUCOSE, URINE (UA) NEGATIVE (NEGATIVE); KETONES,URINE 5 mg/dL (NEGATIVE); LEUKOCYTE ESTERASE ,URINE NEGATIVE Leu/uL (NEGATIVE); NITRATE,URINE NEGATIVE (NEGATIVE); OCCULT BLOOD,URINE NEGATIVE (NEGATIVE); PH,URINE 5.5 (5.0-8.0); PROTEIN,URINE NEGATIVE (NEGATIVE); UROBILINOGEN,URINE 0.2 mg/dL (0.2-1.0)
[2024-05-15 11:15] LABS: ADD UA MICROSCOPIC YES
[2024-05-15 11:26] LABS: BACTERIA,URINE RARE /HPF (None Seen); SQUAMOUS EPITHELIAL CELL,UR FEW /HPF (0-2)
[2024-05-15 11:26] LABS: ALBUMIN 3.4 g/dL (3.5-5.0); BILIRUBIN,DIRECT 0.1 mg/dL (0.0-0.3); BILIRUBIN,TOTAL 0.3 mg/dL (0.2-1.0); CREATININE 0.8 mg/dL (0.5-1.0); TOTAL PROTEIN, SERUM 6.9 g/dL (6.0-8.3)
[2024-05-15] MEDS: 1/2 NS 1000ML 1,000 ML IV SCH (13:53)
[2024-05-15] MEDS: levoFLOXacin 500 MG/D5W 100 ML 100 ML IV SCH (13:53)
[2024-05-15] MEDS ORDERED: CIPR-278 PO (14:52)
[2024-05-15] MEDS ORDERED: PRED5TAB PO (14:52)
[2024-05-15] MEDS ORDERED: ONDA-243 PO (14:52)
[2024-05-15] MEDS ORDERED: BUPR-49 PO (14:52)
[2024-05-15] MEDS: acetaMINOPHEN 325 MG TAB PO PRN (14:56)
[2024-05-15 15:50] VITALS: BP 91/54; PULSE 70; RESP 16; TEMP 99.2
[2024-05-15] MEDS: ondanSETRON 4MG INJ IVP PRN (18:33)
[2024-05-15 20:00] VITALS: BP 97/61; PULSE 66; RESP 17; TEMP 99.1
[2024-05-15] MEDS: leveTIRACEtam 500 MG TABLET PO SCH (20:37)
[2024-05-16] VITALS: BP 93/51; PULSE 80; RESP 18; TEMP 98.6
[2024-05-16 03:56] VITALS: BP 90/49; PULSE 68; RESP 20; TEMP 98.5
[2024-05-16 05:36] LABS: BASOPHILS # (AUTO) 0.02 K/uL (0.00-0.20); BASOPHILS % (AUTO) 0.4 % (0.0-5.0); EOSINOPHILS # (AUTO) 0.13 K/uL (0.00-0.70); EOSINOPHILS % (AUTO) 2.6 % (0.0-8.0); HEMATOCRIT 33.7 % (36-48); IMMATURE GRANULOCYTE ABSOLUTE 0.03 K/uL (0-1); LYMPHOCYTES # (AUTO) 1.2 K/uL (1.0-4.8); LYMPHOCYTES % (AUTO) 24.2 % (21.0-51.0); MEAN CORPUSCULAR HGB CONC 33.2 g/dL (32.0-36.0); MEAN CORPUSCULAR VOLUME 87.3 fL (79-99); MONOCYTES # (AUTO) 0.7 K/uL (0.1-1.0); MONOCYTES % (AUTO) 14.8 % (3.0-13.0); NEUTROPHILS # (AUTO) 2.9 K/uL (1.8-7.7); NEUTROPHILS % (AUTO) 57.4 % (40.0-77.0); PLATELET COUNT (AUTO) 219 K/uL (130-400); RED BLOOD CELL COUNT(AUTO) 3.86 MIL/uL (4.00-5.50); RED CELL DISTRIBUTION WIDTH 12.6 % (11.0-15.5)
[2024-05-16 05:45] LABS: ALBUMIN 3.1 g/dL (3.5-5.0); BILIRUBIN,TOTAL 0.4 mg/dL (0.2-1.0); CREATININE 0.9 mg/dL (0.5-1.0); POTASSIUM 3.4 mmol/L (3.5-5.1); TOTAL PROTEIN, SERUM 6.5 g/dL (6.0-8.3)
[2024-05-16 08:20] VITALS: BP 96/56; PULSE 67; RESP 16; TEMP 98.6
[2024-05-16 08:26] VITALS: O2SAT 100
[2024-05-16] MEDS: PANTOPrazole 40 MG/VIAL IVP SCH (08:26)
== END 2024-05-16 11:00 | disposition home or self-care (01) ==
LOC: EDH 09:40 → EDHIP 12:09 → 3BH 15:50
PROVIDERS: ADMIT Internal Medicine; ATTEND Internal Medicine
DX: G40.919 Epilepsy, unspecified, intractable, without status epilepticus (principal); E86.0 Dehydration; K52.9 Noninfective gastroenteritis and colitis, unspecified; M32.9 Systemic lupus erythematosus, unspecified; E87.6 Hypokalemia; M54.9 Dorsalgia, unspecified; Z88.0 Allergy status to penicillin; Z88.2 Allergy status to sulfonamides; Z88.5 Allergy status to narcotic agent; Z79.899 Other long term (current) drug therapy
CPT/HCPCS: 96376 ×2; 96361 ×2; 96365; 96375 ×2; 96367; 99284; 80076; 80048; 83690; 85025 ×2; 81001; 36415 ×2; 80053; G0378 ×23; J7040; J1953; J1956; J2405 ×3; J2470

== ENCOUNTER 2024-09-06 14:34 | Emergency (ER) | payer MEDICARE ==
[~2024-09-06] VITALS: Ht 154.9 cm; Wt 57.2 kg
[~2024-09-06 14:34] MED LIST changes: -ALBUTEROL INH IH; +BUPR-49 PO; +CIPR-278 PO; +ONDA-243 PO; +PRED5TAB PO
[2024-09-06] MEDS: leveTIRACEtam 500 MG/5 ML SD VIAL IV STA (15:17)
[2024-09-06] MEDS ORDERED: METO-409 PO (15:24)
[2024-09-06] MEDS ORDERED: AMLO-257 PO (15:24)
[2024-09-06] MEDS ORDERED: MELO-106 PO (15:24)
[2024-09-06] MEDS ORDERED: GABA300C PO (15:24)
[2024-09-06] MEDS ORDERED: HYDR-4060 PO (15:24)
[2024-09-06] MEDS ORDERED: LISI40TA9 PO (15:24)
[2024-09-06] MEDS ORDERED: DULO30CA52 PO (15:24)
[2024-09-06 15:28] LABS: BASOPHILS # (AUTO) 0.02 K/uL (0.00-0.20); BASOPHILS % (AUTO) 0.3 % (0.0-5.0); EOSINOPHILS # (AUTO) 0.08 K/uL (0.00-0.70); EOSINOPHILS % (AUTO) 1.3 % (0.0-8.0); IMMATURE GRANULOCYTE ABSOLUTE 0.02 K/uL (0-1); LYMPHOCYTES # (AUTO) 0.8 K/uL (1.0-4.8); LYMPHOCYTES % (AUTO) 12.1 % (21.0-51.0); MEAN CORPUSCULAR HGB CONC 32.6 g/dL (32.0-36.0); MEAN CORPUSCULAR VOLUME 89.1 fL (79-99); MONOCYTES # (AUTO) 0.5 K/uL (0.1-1.0); MONOCYTES % (AUTO) 7.4 % (3.0-13.0); NEUTROPHILS # (AUTO) 4.9 K/uL (1.8-7.7); NEUTROPHILS % (AUTO) 78.6 % (40.0-77.0); PLATELET COUNT (AUTO) 232 K/uL (130-400); RED BLOOD CELL COUNT(AUTO) 3.93 MIL/uL (4.00-5.50); WHITE BLOOD COUNT (AUTO) 6.2 K/uL (4.8-10.8)
[2024-09-06 15:52] LABS: CREATININE 0.7 mg/dL (0.5-1.0); POTASSIUM 4.2 mmol/L (3.5-5.1)
[2024-09-06 15:54] LABS: APPEARANCE,URINE CLEAR (CLEAR); BILIRUBIN,URINE NEGATIVE (NEGATIVE); COLOR,URINE COLORLESS (YELLOW); GLUCOSE, URINE (UA) NEGATIVE (NEGATIVE); KETONES,URINE 10 mg/dL (NEGATIVE); LEUKOCYTE ESTERASE ,URINE NEGATIVE Leu/uL (NEGATIVE); NITRATE,URINE NEGATIVE (NEGATIVE); OCCULT BLOOD,URINE MODERATE (NEGATIVE); PROTEIN,URINE 20 mg/dL (NEGATIVE); UROBILINOGEN,URINE 0.2 mg/dL (0.2-1.0)
[2024-09-06 15:58] LABS: ADD UA MICROSCOPIC YES
[2024-09-06 16:00] LABS: BACTERIA,URINE RARE /HPF (None Seen); MUCUS,URINE RARE LPF (None Seen); RBC,URINE 0-1 /HPF (0-1); SQUAMOUS EPITHELIAL CELL,UR RARE /HPF (0-2)
[2024-09-06 16:01] LABS: AMPHET/METH SCREEN,URINE NEGATIVE (NEGATIVE); BARBITURATE SCREEN, URINE NEGATIVE (NEGATIVE); BENZODIAZEPINES SCREEN,URINE NEGATIVE (NEGATIVE); CANNABINOID SCREEN,URINE POSITIVE (NEGATIVE); COCAINE SCREEN,URINE NEGATIVE (NEGATIVE); OPIATE SCREEN,URINE NEGATIVE (NEGATIVE); PHENCYCLIDINE SCREEN,URINE NEGATIVE (NEGATIVE)
[2024-09-06 16:06] VITALS: BP 101/56; PULSE 78; RESP 18; TEMP 97.8; O2SAT 97
--- NOTE | 2024-09-06 16:11 | ERN ---
ED Note History of Present Illness Stated Complaint: SEIZURE Chief Complaint: Seizure Time Seen by MD: 14:39 Time Seen by Midlevel: 14:44 Dictation: 29-year-old female with a history of seizures coming in for seizure activity that lasted 2 minutes. Patient states she did not fall that she had seizure while in bed. Patient states she takes Keppra for seizure activity end-stage he does take it as prescribed. Denies being any recent illness. Allergies: Coded Allergies: Penicillins (Verified Allergy, Unknown, 06/24/19) sulfamethoxazole (Unverified Allergy, Unknown, 01/30/23) trimethoprim (Unverified Allergy, Unknown, 01/30/23) Home Meds Reported Medications Hydrocodone/Acetaminophen (Hydrocodon-Acetaminophen 5-325) 5 Mg-325 Mg Tablet, 1 EACH PO TID PRN for PAIN LEVEL 4 TO 6, TAB 09/06/24 Amlodipine Besylate (Amlodipine Besylate) 5 Mg Tablet, 1 TAB PO DAILY for 30 Days, #30 TAB 0 Refills 09/06/24 Meloxicam (Meloxicam) 7.5 Mg Tablet, 1 TAB PO DAILY for 30 Days, #30 TAB 0 Refills 09/06/24 Gabapentin (Neurontin) 300 Mg Capsule, 1 CAP PO TID for 30 Days, #90 CAP 0 Refills 09/06/24 Metoprolol Succinate (Metoprolol Succinate) 100 Mg Tab.er.24h, 1 TAB PO DAILY for 30 Days, #30 TAB 0 Refills 09/06/24 Lisinopril (Lisinopril) 40 Mg Tablet, 1 TAB PO DAILY for 30 Days, #30 TAB 0 Refills 09/06/24 Duloxetine HCl (Duloxetine HCl) 30 Mg Capsule.dr, 30 MG PO BID, CAP 09/06/24 Ondansetron (Ondansetron Odt) 4 Mg Tab.rapdis, 4 MG PO TID PRN for NAUS EA/VOMITING, TAB 05/15/24 Ciprofloxacin HCl (Cipro) 500 Mg Tablet, 500 MG PO BID, TAB 05/15/24 Prednisone (Prednisone) 5 Mg Tablet, 5 MG PO DAILY, TAB 05/15/24 Bupropion HCl (Bupropion Xl) 150 Mg Tab.er.24h, 150 MG PO DAILY, TAB 24 Fluticasone Propionate (Flonase Nasal Shubert) 50 Mcg/[place] Shubert, 50 MCG NASAL AD, SPRAY 01/29/23 [Vitamin D3] No Conflict Check, 865[address] UNITS PO AD 01/29/23 Fluticasone/Umeclidin/Vilanter (Trelegy Ellipta 100-62.5-25) 1 Each Blst.w.dev, 1 EACH IH DAILY 01/29/23 Fluoxetine HCl (Fluoxetine HCl) 20 Mg Tablet, 20 MG PO DAILY, TAB 01/29/23 Hydroxychloroquine Sulfate (Hydroxychloroquine Sulfate) 200 Mg Tablet, 200 MG PO DAILY, TAB 01/29/23 Mycophenolate Mofetil (Mycophenolate Mofetil) 500 Mg Tablet, 1000 MG PO BID, TAB 10/26/19 Levetiracetam (Levetiracetam) 1,000 Mg Tablet, 1000 MG PO BID, TAB 11/20/18 Past Medical History Past Medical History: COPD, Other Additional Past Medical Hx: LUPUS,EPILEPSY Surgical History: Other, Surgical History Other: D&C Social History: Negative, Other LMP: Sep 02, 2024 Review of System Dictation Constitutional: Negative for fever,chills, and weight loss Eyes: Negative for injury, pain,redness, and discharge ENT: Negative for injury,pain or swelling Cardiovascular: Negative for chest pain, palpitations, and edema Respiratory: Negative for shortness of breath, cough, and wheezing, Abdomen/GI: Negative for abdominal pain, nausea, vomiting, diarrhea, and constipation Back: Negative for injury and pain : Negative for injury, bleeding and discharge MS/Extremity: Negative for injury and deformity Skin: Negative for rash, and discoloration Neuro: Negative for headache, weakness, numbness, tingling, and seizure Psych: Negative for suicide ideation, homicidal ideation, and hallucinations Review of Systems: was completed Initial Vital Sign VS Vital Signs Date Time Temp Pulse Resp B/P (MAP) Pulse Ox O2 Delivery O2 Flow Rate FiO2 09/06/24 14:35 98.1 92 20 88/47 99 Room Air 09/06/24 14:48 0 21 Physical Exam Dictation General: awake, alert, NAD Head/Face: Normocephalic, atraumatic Eyes: PERRL, EOMI, vision at baseline ENT: oral cavity clear, TMs clear, no signs of infection Neck: Trachea midline, supple, no nuchal rigidity Cardiovascular: RRR, normal S1/S2, No MRGs, no JVD Respiratory: CTAB, no respiratory distress, No rales or wheezes Abdomen: Soft, non-tender, non-distended, normal bowel sounds, no guarding or rebound. Skin: Warm, dry, normal turgor, no rash MS/Extremity: Pulses equal, no cyanosis, neurovascular intact, FROM Neuro: COAx4, GCS 15, strength 5/5, CN 2-12 intact, normal cerebellar exam, normal gait, Psych: Normal behavior, mood, and affect normal Results (Laboratory/Radiology) Laboratory/Radiology Laboratory Tests Test 09/06/24 14:57 09/06/24 15:22 Urine Color COLORLESS (YELLOW) Urine Appearance CLEAR (CLEAR) Urine pH 5.0 (5.0-8.0) Urine Specific [place] 1.015 (1.001-1.031) Urine Protein 20 mg/dL (NEGATIVE) H Urine Glucose (UA) NEGATIVE mg/dL (NEGATIVE) Urine Ketones 10 mg/dL (NEGATIVE) H Urine Occult Blood MODERATE (NEGATIVE) H Urine Nitrate NEGATIVE (NEGATIVE) Urine Bilirubin NEGATIVE mg/dL (NEGATIVE) Urine Urobilinogen 0.2 mg/dL (0.2-1.0) Urine Leukocyte Esterase NEGATIVE [place]/uL Urine RBC 0-1 /HPF (0-1) Urine WBC 2-5 /HPF (0-1) H Urine Squamous Epithelial Cells RARE /HPF (0-2) Urine Bacteria RARE /HPF (None Seen) Urine Opiates Screen NEGATIVE (NEGATIVE) Urine Barbiturates Screen NEGATIVE (NEGATIVE) Urine Phencyclidine Screen NEGATIVE (NEGATIVE) Urine Amphetamines Screen NEGATIVE (NEGATIVE) Urine Benzodiazepines Screen NEGATIVE (NEGATIVE) Urine Cocaine Screen NEGATIVE (NEGATIVE) Urine Marijuana (THC) Screen POSITIVE (NEGATIVE) H White Blood Count 6.2 K/uL (4.8-10.8) Red Blood Count 3.93 MIL/uL (4.00-5.50) L Hemoglobin 11.4 g/dL (12.0-16.0) L Hematocrit 35.0 % (36-48) L Mean Corpuscular Volume 89.1 fL (79-99) Mean Corpuscular Hemoglobin 29.0 pg (27.0-33.0) Mean Corpuscular Hemoglobin Concent 32.6 g/dL (32.0-36.0) Red Cell Distribution Width 13.0 % (11.0-15.5) Platelet Count 232 K/uL (130-400) Mean Platelet Volume 10.2 fL (7.5-10.5) Immature Granulocyte % (Auto) 0.3 % (0-1) Neutrophils (%) (Auto) 78.6 % (40.0-77.0) H Lymphocytes (%) (Auto) 12.1 % (21.0-51.0) L Monocytes (%) (Auto) 7.4 % (3.0-13.0) Eosinophils (%) (Auto) 1.3 % (0.0-8.0) Basophils (%) (Auto) 0.3 % (0.0-5.0) Neutrophils # (Auto) 4.9 K/uL (1.8-7.7) Lymphocytes # (Auto) 0.8 K/uL (1.0-4.8) L Monocytes # (Auto) 0.5 K/uL (0.1-1.0) Eosinophils # (Auto) 0.08 K/uL (0.00-0.70) Basophils # (Auto) 0.02 K/uL (0.00-0.20) Absolute Immature Granulocyte (auto 0.02 K/uL (0-1) Nucleated Red Blood Cells 0.0 % (0.0-0.19) Sodium Level 139 mmol/L (136-145) Potassium Level 4.2 mmol/L (3.5-5.1) Chloride Level 106 mmol/L (101-111) Carbon Dioxide Level 29 mmol/L (21-32) Blood Urea Nitrogen 7 mg/dL (7-18) Creatinine 0.7 mg/dL (0.5-1.0) Glomerular Filtration Rate Calc 119 mL/min (>90) Random Glucose 75 mg/dL (70-105) Total Calcium 8.6 mg/dL (8.5-10.1) Human Chorionic Gonadotropin, Quant 0 mIU/mL (0-5) Labs Reviewed?: Yes ED Course ED Course Orders Procedure Category Date Status Time Cbc With Differential LAB 09/06/24 Complete 15:11 Basic Metabolic Panel LAB 09/06/24 Complete 15:11 Hcg,Quantitative LAB 09/06/24 Complete 15:11 Levetiracetam 500 PHA 09/06/24 Complete Mg/5 [address] V (Keppra 5 15:11 Drug Screen Urine LAB 09/06/24 Complete 15:45 Urinalysis Profile LAB 09/06/24 Complete 15:45 Current Medications Medications (Trade) Dose Ordered Sig/Javon Route PRN Reason Start Time Stop Time Status Last Admin Dose Admin Levetiracetam (kepPRA 500 MG/5 ML SD VIAL) 1,000 mg ONCE STAT IV 09/06/24 15:11 09/06/24 15:13 DC 09/06/24 15:17 Vital Signs Date Time Temp Pulse Resp B/P (MAP) Pulse Ox O2 Delivery O2 Flow Rate FiO2 09/06/24 14:48 83 20 91/52 98 Room Air* 0 21 09/06/24 14:35 98.1 92 20 88/47 99 Room Air Medical Decision Making MDM MDM: 29-year-old female with a history of seizures coming in for seizure activity that lasted 2 minutes. Patient states she did not fall that she had seizure while in bed. Patient states she takes Keppra for seizure activity end- stage he does take it as prescribed. Denies being any recent illness.CBC shows no leukocytosis, normocytic anemia, no thrombocytopenia. Chemistry shows unremarkable. Patient has not . UA shows no evidence of urinary tract infection. Toxicology positive for THC. Patient received 1 g of Keppra IV in the ER. Discussed findings with the patient, educated to follow up with her urologist and to stop smoking marijuana. Differential diagnosis: Breakthrough seizure, noncompliant with medication, illicit drug use, dehydration, electrolyte abnormality Rationale: Tests considered and ordered secondary to shared decision making include: Previous outside records reviewed: Old ER visits. Risk of complication and/or morbidity or mortality of patient management: None Medications-Per medication reconciliation Need for hospitalization: Patient does not meet criteria for hospitalization. Need for emergency major/minor surgery: No There are no social concerns with this patient. Prescription drug management Prescriptions will include symptomatic care Patient's prior external medical records from other ER visits were reviewed by me as indicated. Prior testing and results from previous visits were reviewed. Prior tests were taken into account with medical decision making and resource utilization, independent historian/historians were used to obtain complete medical history. I independently interpreted the test that were performed, results were reviewed by me and considered findings on radiology if ordered. Medical management and examination interpretation discussions were had by me with other qualified healthcare professionals as indicated for the patient's care. DX & DISP Disposition: Discharge Departure Impression: Primary Impression: Breakthrough seizure Additional Impression: Marijuana use Condition: Stable Additional Instructions: Please continue to take your medication for your seizure as prescribed. Stop smoking marijuana. Return to the ER if any symptoms worsen. Referrals: ANN RHODES MD (PCP) Time of Disposition: 16:10 I have reviewed the case, and I agree with, Diagnosis and Plan MARQUIS RANDALL NP Sep 06, 2024 16:11
== END 2024-09-06 16:27 | disposition home or self-care (01) ==
LOC: EDH 14:34
DX: G40.909 Epilepsy, unspecified, not intractable, without status epilepticus (principal); F12.90 Cannabis use, unspecified, uncomplicated; J44.9 Chronic obstructive pulmonary disease, unspecified; R10.2 Pelvic and perineal pain; Z79.1 Long term (current) use of non-steroidal anti-inflammatories (NSAID); Z79.52 Long term (current) use of systemic steroids; Z79.624 Long term (current) use of inhibitors of nucleotide synthesis; Z79.899 Other long term (current) drug therapy; Z88.0 Allergy status to penicillin; Z88.1 Allergy status to other antibiotic agents; Z88.2 Allergy status to sulfonamides
CPT/HCPCS: 99284; 96365; 80048; 80305; 84702; 85025; 36415; 81001; J1953

== ENCOUNTER → 2025-02-26 | Outpatient (CLI) | payer MEDICARE ==
[~2025-02-26] MED LIST changes: +AMLO-257 PO; +DULO30CA52 PO; +GABA300C PO; +HYDR-4060 PO; +LEVE100023 PO; -LEVE10006 PO; +LISI40TA15 PO; +MELO-106 PO; +METO-409 PO
--- NOTE | 2025-02-26 11:39 | HMCIMG ---
EXAM: CT Abdomen and Pelvis without IV contrast CLINICAL HISTORY: Right lower quadrant pain. TECHNIQUE: Thin collimated axial CT images of the abdomen and pelvis were obtained with sagittal and coronal reformatted images also submitted. CT scan is done according to ALARA (As Low As Reasonably Achievable). CONTRAST: None. COMPARISON: Prior CT abdomen and pelvis dated 01/29/23. FINDINGS: Unremarkable visualized lung parenchyma. No focal abnormality within the liver, gallbladder, pancreas, spleen, adrenals, or kidneys. There is no obvious bowel wall thickening. Bowel loops are normal in caliber without evidence of obstruction or ileus. The appendix is normal. There is no abnormality within the urinary bladder. 2 cm right adnexal cyst with a small amount of pelvic free fluid. No lymphadenopathy. No free air or fluid collection. There is no acute osseous abnormality. IMPRESSIONS: 2 cm right adnexal cyst with a small amount of pelvic free fluid. No bowel obstruction or inflammation. Normal appendix. No urinary calculi. No hydronephrosis /[place]
== END | disposition home or self-care (01) ==
LOC: RAH 09:59
PROVIDERS: ATTEND Internal Medicine
DX: N83.8 Other noninflammatory disorders of ovary, fallopian tube and broad ligament (principal); R10.31 Right lower quadrant pain; R11.10 Vomiting, unspecified; R50.9 Fever, unspecified
CPT/HCPCS: 74176